=== PATIENT | male | born 1945 | race Caucasian/White ===

== ENCOUNTER 2019-09-02 14:40 | Emergency (ER) | payer MEDICARE, OTHER ==
[2019-09-02] MEDS ORDERED: ACETAMINOPHEN TAB 500 MG TAB PO STA (15:19)
[2019-09-02] MEDS ORDERED: IBUPROFEN 600 MG TAB PO STA (15:20)
[2019-09-02 15:43] LABS: Appearance,Urine Clear (Clear); Bilirubin,Urine Negative (Negative); Blood,Urine Trace (Negative); Color,Urine Yellow; Glucose,Urine (UA) Negative (Negative); Ketones,Urine Negative (Negative); Leukocyte Esterase,Urine Negative (Negative); Mucus,Urine Rare /hpf; Nitrite,Urine Negative (Negative); PH, Urine 5.5 (5.0-8.0); Protein,Urine Negative (Negative); RBC,Urine 2 /hpf (0-5); Specific Gravity,Urine 1.019 (1.001-1.035); Urobilinogen,Urine <2.0 mg/dL (<2.0); WBC,Urine 2 /hpf (0-5)
--- NOTE | 2019-09-02 15:47 | ED ---
General Adult HPI - General Chief complaint: Fever Stated complaint: Fever Time Seen by Provider: 09/02/19 15:45 Source: patient, RN notes reviewed, old records reviewed Mode of arrival: wheelchair Limitations: no limitations - History of Present Illness Initial comments: This is a 72-year-old male who presents emergency department stating that he has had a fever for about an hour and half. Patient denies any cough. Patient denies any difficulty breathing first breath per patient denies chest pain or palpitations. Patient denies any abdominal pain patient denies nausea vomiting diarrhea. Patient denies any dysuria hematuria urinary frequency. Patient states she has noticed occasionally his urine. Her. Patient denies any headache patient denies numbness weakness. Patient denies any lightheadedness or dizziness. Patient denies any rashes lesions or areas of erythema. Patient denies any neck stiffness. - Related Data Allergies Allergy/AdvReac Type Severity Reaction Status Date / Time No Known Allergies Allergy Verified 09/02/19 14:47 Review of Systems ROS Statement: Those systems with pertinent positive or pertinent negative responses have been documented in the HPI. ROS Other: All systems not noted in ROS Statement are negative. Past Medical History Past Medical History: Atrial Fibrillation, COPD, Hypertension History of Any Multi-Drug Resistant Organisms: None Reported Past Surgical History: Joint Replacement, Orthopedic Surgery Additional Past Surgical History / Comment(s): right shoulder, right knee replacement, left ankle replaced, Past Psychological History: No Psychological Hx Reported Smoking Status: Former smoker Past Alcohol Use History: None Reported Past Drug Use History: None Reported General Exam - General Exam Comments Initial Comments: GENERAL: Patient is well-developed and well-nourished. Patient is nontoxic and well- hydrated and is in no acute distress ENT: Neck is soft and supple. No significant lymphadenopathy is noted. Oropharynx is clear. Moist mucous membranes. Neck has full range of motion without eliciting any pain. EYES: The sclera were anicteric and conjunctiva were pink and moist. Extraocular movements were intact and pupils were equal round and reactive to light. Eyelids were unremarkable. PULMONARY: Unlabored respirations. Good breath sounds bilaterally. No audible rales rhonchi or wheezing was noted. CARDIOVASCULAR: There is a regular rate and rhythm without any murmurs gallops or rubs. ABDOMEN: Soft and nontender with normal bowel sounds. SKIN: Skin is clear with no lesions or rashes and otherwise unremarkable. NEUROLOGIC: Patient is alert and oriented x3. Cranial nerves II through XII are grossly intact. Motor and sensory are also intact. Normal speech, volume and content. Symmetrical smile. MUSCULOSKELETAL: Normal extremities with adequate strength and full range of motion. LYMPHATICS: No significant lymphadenopathy is noted PSYCHIATRIC: Normal psychiatric evaluation. Limitations: no limitations Course Vital Signs 09/02/19 14:41 Temperature 102.7 F H Pulse Rate 101 H Respiratory 16 Rate Blood Pressure 148/76 O2 Sat by Pulse 97 Oximetry Medical Decision Making - Lab Data Lab Results 09/02/19 Range/Units 15:20 Urine Color Yellow Urine Appearance Clear (Clear) Urine pH 5.5 (5.0-8.0) Ur Specific [place] 1.019 (1.001-1.035) Urine Protein Negative (Negative) Urine Glucose (UA) Negative (Negative) Urine Ketones Negative (Negative) Urine Blood Trace H (Negative) Urine Nitrite Negative (Negative) Urine Bilirubin Negative (Negative) Urine Urobilinogen <2.0 (<2.0) mg/dL Ur Leukocyte Esterase Negative (Negative) Urine RBC 2 (0-5) /hpf Urine WBC 2 (0-5) /hpf Urine Mucus Rare H (None) /hpf Disposition Clinical Impression: Viral illness Disposition: HOME SELF-CARE Condition: Good Instructions (If sedation given, give patient instructions): Fever in Adults (ED), Viral Syndrome (ED) Is patient prescribed a controlled substance at d/c from ED?: No Referrals: Red Dean MD [Primary Care Provider] - 1-2 days Time of Disposition: 15:46
[2019-09-02 15:57] VITALS: BP 143/68; PULSE 106; RESP 18; TEMP 103.2
== END 2019-09-02 15:59 | disposition home or self-care (01) ==
LOC: EC 14:40
DX: B34.9 Viral infection, unspecified (principal); Z20.828 Contact with and (suspected) exposure to other viral communicable diseases; Z87.891 Personal history of nicotine dependence; Z96.651 Presence of right artificial knee joint
CPT/HCPCS: 81001; 99284; U0003

== ENCOUNTER 2022-11-25 05:40 | Day surgery (SDC) | payer MEDICARE, OTHER ==
[2022-11-25] MEDS: SODIUM CHLORIDE 0.9% 1,000 ML IV SCH ×2 (06:25→22:47)
[2022-11-25] MEDS ORDERED: HYDROmorphone 0.5 MG/0.5 ML SYRINGE IVP PRN (07:00)
[2022-11-25] MEDS ORDERED: MIDAZOLAM 2 MG/2 ML VIAL IV PRN (07:00)
[2022-11-25] MEDS ORDERED: ePHEDrine 50 MG/ML 1 ML VIAL ONE (07:33)
[2022-11-25] MEDS ORDERED: HEPARIN SODIUM,PORCINE 10,000 UNIT/ML 1 ML VIAL ONE (07:33)
[2022-11-25] MEDS ORDERED: ATROPINE SULFATE 0.4 MG/ML 1 ML VIAL ONE (07:33)
[2022-11-25] MEDS ORDERED: SUCCINYLCHOLINE CHLORIDE 200 MG/10 ML VIAL IV ONE (07:33)
[2022-11-25] MEDS ORDERED: fentaNYL (PF) 50 MCG/ML 2 ML AMP ONE (07:33)
[2022-11-25] MEDS ORDERED: PHENYLEPHRINE-0.9% NACL SYG 1,000 MCG/10 ML SYRINGE ONE (07:33)
[2022-11-25] MEDS ORDERED: LIDOCAINE 2% INJ 20 MG/ML (2 ML VIAL) ONE (07:33)
[2022-11-25] MEDS ORDERED: PROPOFOL 10 MG/ML 20 ML VIAL IV ONE (07:33)
[2022-11-25] MEDS ORDERED: HEPARIN SOD,PORK IN 0.45% NACL 25,000 UNIT in 0.45% NACL 1 250ML.BAG IV ONE (07:51)
[2022-11-25] MEDS ORDERED: LIDOCAINE 1% INJ 10MG/ML (30 ML VIAL-PF) SQ ONE (08:15)
[2022-11-25] MEDS ORDERED: IOPAMIDOL-370 100ML BTL INJ ONE (11:20)
[2022-11-25] MEDS: LACTATED RINGERS 1,000 ML IV SCH ×3 (11:44→22:47)
[2022-11-25] MEDS ORDERED: ACETAMINOPHEN IV (For NPO) 1,000 MG in EMPTY BAG 1 BAG IVPB ONE (11:45)
[2022-11-25] MEDS ORDERED: ACETAMINOPHEN TAB 325 MG TAB PO PRN (11:45)
--- NOTE | 2022-11-25 11:50 | P.HPCAR ---
History of Present Illness This is Dr. Juares dictating an H/P on this patient The patient was interviewed and examined IMPRESSION / ASSESSMENT: Paroxysmal atrial fibrillation with increasing frequency and breakthrough episodes despite flecainide Associated palpitations and shortness of breath Sick sinus syndrome Statin intolerance Hypertension PLAN: Proceed with A. fib ablation HPI Patient denies any fever chills cough expectoration Denies any syncope or palpitations in the last few weeks No undue shortness of breath Orthopnea PND He's been experiencing increasing episodes of atrial fibrillation that are not responding to flecainide He has underlying sick sinus syndrome which limits the use of drugs for A. fib ROS: No fever chills or rigors, no cough, phlegm or expectoration, no nausea, vomiting or diarrhea, no hematuria, dysuria, no musculoskeletal complaints, no strokes or seizures, no skin lesions. EXAMINATION: Temperature 90.8 degrees, pulse rate 56 Blood pressure 147/72 Heart sounds S1 and S2 are normal Breath sounds are clear no rhonchi no crackles Abdomen soft extremities are warm No lower extremity edema No JVD REVIEW OF LABS, ECG & MEDICAL DATA on xarelto, flecainide low-dose, very low- dose beta blockers, amlodipine Physical Exam Vitals: Vital Signs Temp Pulse Resp BP Pulse Ox 11/25/22 06:33 98.0 F 56 L 16 147/72 97 Intake and Output 11/24/22 11/25/22 11/25/22 22:59 06:59 14:59 Intake Total 50 940 Balance 50 940 Intake: IV 50 940 Other: Weight 94.1 kg Past Medical History Past Medical History: Atrial Fibrillation, COPD, CVA/TIA, Hypertension, Thyroid Disorder Additional Past Medical History / Comment(s): tia no residual, see Dr Juares's H & P pt reports tinnitis lft ear History of Any Multi-Drug Resistant Organisms: None Reported Past Surgical History: Joint Replacement, Orthopedic Surgery Additional Past Surgical History / Comment(s): right shoulder, right knee replacement, left ankle replaced, yamileth to left leg placed and then removed at a later time. Past Anesthesia/Blood Transfusion Reactions: No Reported Reaction Smoking Status: Former smoker Physical Examination Vital Signs Temp Pulse Resp BP Pulse Ox 11/25/22 06:33 98.0 F 56 L 16 147/72 97 Intake and Output 11/24/22 11/25/22 11/25/22 22:59 06:59 14:59 Intake Total 50 940 Balance 50 940 Intake: IV 50 940 Other: Weight 94.1 kg Results Current Medications Generic Name Dose Route Start Last Admin Trade Name Freq PRN Reason Stop Dose Admin Acetaminophen 650 mg 11/25/22 11:45 Acetaminophen Tab 325 Mg Tab PO Q6HR PRN Mild Pain (Scale 1 to 3) Amlodipine Besylate 10 mg 11/26/22 09:00 Amlodipine 10 Mg Tab PO DAILY [facility] Aspirin 81 mg 11/26/22 09:00 Aspirin 81 Mg PO DAILY [facility] Famotidine 20 mg 11/25/22 21:00 Famotidine 20 Mg Tab PO BID [facility] Flecainide Acetate 50 mg 11/25/22 21:00 Flecainide 50 Mg Tab PO Q12HR [facility] Hydromorphone HCl 0.5 mg 11/25/22 07:00 Hydromorphone 0.5 Mg/0.5 Ml Syringe IVP 11/25/22 23:00 Q5M PRN Phase 1 or 2 - Pain Control Sodium Chloride 1,000 mls @ 20 mls/hr 11/25/22 06:03 11/25/22 06:25 Saline 0.9% IV 12/25/22 06:04 950 mls .Q24H [facility] Administration Lactated Ringer's 1,000 mls @ 20 mls/hr 11/25/22 06:03 11/25/22 11:44 Lactated Ringers IV 12/25/22 06:04 0 mls .Q24H [facility] Administration Acetaminophen 1,000 mg/ IV 100 mls @ 400 mls/hr 11/25/22 11:45 Solution IVPB 11/25/22 11:59 ONCE ONE Levothyroxine Sodium 200 mcg 11/26/22 06:30 Levothyroxine 100 Mcg Tab PO DAILY@0630 [facility] Losartan Potassium 50 mg 11/26/22 09:00 Losartan 50 Mg Tab PO DAILY [facility] Metoprolol Tartrate 25 mg 11/25/22 11:45 Metoprolol Tartrate 25 Mg Tab PO Q48H [facility] Midazolam HCl 2 mg 11/25/22 07:00 Midazolam 2 Mg/2 Ml Vial IV 11/25/22 23:00 ONCE PRN Pre-Op Anxiety Pravastatin Sodium 20 mg 11/25/22 21:00 Pravastatin Sodium 20 Mg Tab PO HS [facility] Rivaroxaban 20 mg 11/25/22 18:00 Rivaroxaban 20 Mg Tab PO HS [facility] Protocol Sodium Chloride 12 ml 11/25/22 11:45 Sodium Chloride 0.9% Flush 10 Ml Syringe IV Q12HR PRN Line Flush Tamsulosin HCl 0.4 mg 11/26/22 09:00 Tamsulosin 0.4 Mg Cap.Er.24h PO DAILY [facility] Intake and Output 11/24/22 11/25/22 11/25/22 22:59 06:59 14:59 Intake Total 50 940 Balance 50 940 Intake: IV 50 940 Other: Weight 94.1 kg Patient Weight 11/26/22 06:59 Weight 94.1 kg
--- NOTE | 2022-11-25 11:56 | P.EPPROC ---
- EP Procedure Note Electrophysiology Procedure Note: PROCEDURE A. fib ablation with PVI, left atrial roof ablation DIAGNOSIS Paroxysmal Atrial fibrillation, symptomatic, refractory to therapy RESULT No left atrial appendage mass seen on intracardiac echo, normal LV function Evidence of thickened pericardium and small effusion at the base of the LV and behind the left atrium Successful A. fib ablation/pulmonary vein isolation of all veins using cryo- ablation, wide [place] ablation Complete entrance block in all 4 veins confirmed No evidence for phrenic nerve injury Left atrial roof ablation, successful Ablation of the left atrial septum, atrial tissue between right superior and right inferior pulmonary veins Esophageal deflection YES / NO PROCEDURE DETAILS Written informed consent prior to procedure. Patient brought to the EP lab. General anesthesia given. Heparin administered. A city maintained above 300 seconds Both groins prepped and draped per protocol and venous sheaths placed. Esophagus intubated, circa catheter for temperature monitoring an endoscope for possible esophageal deflection. Phrenic nerve monitoring performed. Esophageal temperature monitoring performed. Esophageal deflection performed if circa catheter overlapping with the balloon or circa temperature less than 27.5C Intracardiac echocardiography performed. Pericardium evaluated. Left atrial appendage evaluated. Left atrium evaluated along with pulmonary veins Transseptal catheterization performed under fluoroscopic guidance and intraca ia echo guidance Cryoablation sheath exchanged, balloon catheter along with achieve catheter placed in the left atrium. Pulmonary veins isolated in the following sequence: Left superior pulmonary vein followed by left inferior pulmonary vein, followed by right inferior pulmonary vein and lastly right superior pulmonary vein. Phrenic nerve stimulation along with capture thresholds within the SVC and right superior pulmonary vein to identify the phrenic nerve proximity to the cryo- balloon. Pulmonary veins isolated and confirmed with entrance and exit block. Phrenic nerve integrity confirmed at the end of the procedure Ablation of the left atrial roof performed with sequential lesions from the left superior to the right superior pulmonary veins. Ablation of the electrograms confirmed Ablation of the left atrial septum performed with cannulation of the superior branch of the right inferior or the inferior branch of the right superior vein to achieve ablation of the posterior septum of the left atrium. Ablation of electrograms confirmed Diagnostic catheters for the high right atrium, His bundle, coronary sinus placed. LA and RA pressures recorded RA pressure: 13/9/10 LA pressure: 18/6/12 Diagnostic EP study with coronary sinus pacing and recording Baseline measurements: Sinus cycle length 900 ms, VT interval 138 ms, QRS 99 ms and QT 365 ms AH interval 61 and HV interval 43 ms Sinus node recovery times were 1078, 1068 and 1072 ms. AV node Wenckebach block 330 ms Left bundle branch block aberrancy with rapid atrial pacing During the procedure the patient went to junctional rhythm intermittently and IV atropine was infused and atrial pacing performed Intact AV node Venous sheaths were removed and hemostasis assured with a closure device. Patient extubated and transferred to recovery PROCEDURES PERFORMED Diagnostic EP study CS pacing and recording Left and right transseptal catheterization Catheter the mapping of the tachycardia Intracardiac echocardiography Pulmonary vein isolation with transseptal and comprehensive EPS, [id number] Drug infusion, +[id number] Left atrial roof line, +[id number] Linear ablation, left atrium septum, +[id number]
[2022-11-25] MEDS ORDERED: RIVAROXABAN 20 MG TAB PO SCH (18:00)
[2022-11-25] MEDS: FLECAINIDE 50 MG TAB PO SCH (20:13)
[2022-11-25] MEDS: FAMOTIDINE 20 MG TAB PO SCH (20:13)
[2022-11-25] MEDS ORDERED: PRAVASTATIN SODIUM 20 MG TAB PO SCH (21:00)
[2022-11-26] MEDS ORDERED: LEVOTHYROXINE 100 MCG TAB PO SCH (06:30)
[2022-11-26 08:47] VITALS: BP 153/76; PULSE 87; RESP 16; TEMP 98.2
[2022-11-26] MEDS ORDERED: LOSARTAN 50 MG TAB PO SCH (09:00)
[2022-11-26] MEDS ORDERED: ASPIRIN 81 MG PO SCH (09:00)
[2022-11-26] MEDS ORDERED: METOPROLOL TARTRATE 25 MG TAB PO SCH (09:00)
[2022-11-26] MEDS ORDERED: amLODIPine 10 MG TAB PO SCH (09:00)
[2022-11-26] MEDS ORDERED: TAMSULOSIN 0.4 MG CAP.ER.24H PO SCH (09:00)
[2022-11-26] MEDS: FAMOTIDINE 20 MG TAB PO SCH (09:12)
[2022-11-26] MEDS: FLECAINIDE 50 MG TAB PO SCH (09:13)
[2022-11-26] MEDS ORDERED: COLCHICINE 0.6 MG EACH PO SCH (09:45)
== END 2022-11-26 16:42 | disposition home or self-care (01) ==
LOC: CATHEP 05:40 → 6NMEDSUR 11:39 → CATHEP 11-26 16:42
PROVIDERS: ATTEND Internal Medicine Clinical Cardiac Electrophysiology
DX: I48.0 Paroxysmal atrial fibrillation (principal); I49.5 Sick sinus syndrome; I10 Essential (primary) hypertension; J44.9 Chronic obstructive pulmonary disease, unspecified; I48.91 Unspecified atrial fibrillation; E07.9 Disorder of thyroid, unspecified; Z98.890 Other specified postprocedural states; Z87.891 Personal history of nicotine dependence; Z79.899 Other long term (current) drug therapy
CPT/HCPCS: 93623; 93656; 93657; 86900; 86901; 86850; C1894 ×2; C1769 ×3; C1760; C1893; C1733; C1766; C1730; J2001; Q9967; J1644

== ENCOUNTER 2024-04-14 18:50 | Inpatient (IN) | payer MEDICARE ==
--- NOTE | 2024-04-14 19:04 | ED ---
Arrhythmia/Palpitations HPI - General Chief Complaint: Arrhythmia/Palpitations Stated Complaint: varied heart rate, facial numbness Time Seen by Provider: 04/14/24 19:03 Source: patient, RN notes reviewed, old records reviewed Mode of arrival: ambulatory Limitations: no limitations - History of Present Illness Initial Comments: This is a 78 male to the ER for evaluation today. Patient presents today for evaluation of uncontrolled heart rate going on 1 week. History of atrial fibrillation, on anticoagulation. Patient states the heart rate has been in the 130s for a week but today with chest pain chest pain to the jaw, patient is without chest pain occasional shortness of breath especially with exertion MD Complaint: rapid heart beat, "heart racing", palpitations, irregular heart beat, atrial fibrillation -: week(s) (1) Context: occurred during rest Arrhythmia History: atrial fibrillation Associated Symptoms: chest pain Treatments Prior to Arrival: beta-brian - Related Data Home Medications Medication Instructions Recorded Confirmed Aspirin [Adult Low Dose Aspirin EC] 81 mg PO DAILY 11/19/22 04/15/24 Famotidine [Pepcid] 20 mg PO BID 11/19/22 04/15/24 HYDROcodone/APAP 7.5-325MG [Humble 1 tab PO Q6H PRN 11/19/22 04/15/24 7.5-325] Losartan [Cozaar] 50 mg PO DAILY 11/19/22 04/15/24 Multivitamins, Thera [Multivitamin 1 tab PO DAILY 11/19/22 04/15/24 (formulary)] Nitroglycerin 0.4 mg SL Q5M PRN 11/19/22 04/15/24 Rivaroxaban [Xarelto] 20 mg PO HS 11/19/22 04/15/24 Tamsulosin [Flomax] 0.4 mg PO DAILY 11/19/22 04/15/24 Testosterone Cypionate 200 mg IM Q30D 11/19/22 04/15/24 [Depo-Testosterone] bisacodyL [Dulcolax] 10 mg PO HS 11/19/22 04/15/24 Albuterol Sulfate [Albuterol 1 puff PO RT-Q6H PRN 04/15/24 04/15/24 Sulfate Hfa] Biotin [Biotin Disolve] 10,000 mcg PO HS 01/19/25 01/19/25 Docusate [Colace] 400 mg PO HS 04/15/24 04/15/24 Metoprolol Succinate (ER) [Toprol 50 mg PO DAILY 04/15/24 04/15/24 XL] Pravastatin Sodium [Pravachol] 40 mg PO HS 04/15/24 04/15/24 Previous Rx's Medication Instructions Recorded Levothyroxine Sodium [Synthroid] 150 mcg PO DAILY@0630 30 Days #30 04/21/24 tab Spironolactone [Aldactone] 25 mg PO DAILY 30 Days #30 tab 04/21/24 Allergies Allergy/AdvReac Type Severity Reaction Status Date / Time No Known Allergies Allergy Verified 04/15/24 08:38 Review of Systems ROS Statement: Those systems with pertinent positive or pertinent negative responses have been documented in the HPI. ROS Other: All systems not noted in ROS Statement are negative. Past Medical History Past Medical History: Atrial Fibrillation, COPD, CVA/TIA, Hypertension, Thyroid Disorder Additional Past Medical History / Comment(s): tia no residual, see Dr Juares's H & P pt reports tinnitis lft ear History of Any Multi-Drug Resistant Organisms: None Reported Past Surgical History: Joint Replacement, Orthopedic Surgery Additional Past Surgical History / Comment(s): right shoulder, right knee replacement, left ankle replaced, yamileth to left leg placed and then removed at a later time. Past Anesthesia/Blood Transfusion Reactions: No Reported Reaction Past Psychological History: No Psychological Hx Reported Smoking Status: Former smoker Past Alcohol Use History: Rare Past Drug Use History: None Reported - Past Family History Mother Family Medical History: Coronary Artery Disease (CAD) Father Family Medical History: Cancer General Exam Limitations: no limitations General appearance: alert, in no apparent distress, anxious Head exam: Present: atraumatic, normocephalic, normal inspection Eye exam: Present: normal appearance, PERRL, EOMI. Absent: scleral icterus, conjunctival injection, periorbital swelling ENT exam: Present: normal exam, mucous membranes moist Neck exam: Present: normal inspection. Absent: tenderness, meningismus, lymphadenopathy Respiratory exam: Present: normal lung sounds bilaterally. Absent: respiratory distress, wheezes, rales, rhonchi, stridor Cardiovascular Exam: Present: tachycardia, irregular rhythm, normal heart sounds. Absent: systolic murmur, diastolic murmur, rubs, gallop, clicks GI/Abdominal exam: Present: soft, normal bowel sounds. Absent: distended, tenderness, guarding, rebound, rigid Extremities exam: Present: normal inspection, full ROM, normal capillary refill. Absent: tenderness, pedal edema, joint swelling, calf tenderness Back exam: Present: normal inspection Neurological exam: Present: alert, oriented X3, CN II-XII intact Psychiatric exam: Present: normal affect, normal mood Skin exam: Present: warm, dry, intact, normal color. Absent: rash Course Vital Signs 04/14/24 04/14/24 04/14/24 18:54 19:55 20:48 Temperature 98.8 F Pulse Rate 135 H 133 H 130 H Respiratory 18 18 16 Rate Blood Pressure 138/89 106/87 136/94 O2 Sat by Pulse 96 Oximetry 04/14/24 04/14/24 04/14/24 21:41 22:31 23:41 Temperature Pulse Rate 128 H 133 H 67 Respiratory 16 18 18 Rate Blood Pressure 138/99 91/72 102/64 O2 Sat by Pulse 96 Oximetry 04/15/24 04/15/24 04/15/24 00:02 01:35 02:57 Temperature Pulse Rate 52 L 50 L 50 L Respiratory 18 16 18 Rate Blood Pressure 98/53 O2 Sat by Pulse Oximetry 04/15/24 04/15/24 04/15/24 05:27 06:53 08:00 Temperature Pulse Rate 130 H 131 H 127 H Respiratory 18 18 20 Rate Blood Pressure 113/74 121/87 125/75 O2 Sat by Pulse 96 96 Oximetry 04/15/24 04/15/24 04/15/24 09:01 10:00 12:52 Temperature Pulse Rate 131 H 133 H 133 H Respiratory 20 20 20 Rate Blood Pressure 118/90 114/81 120/94 O2 Sat by Pulse 96 96 96 Oximetry 04/15/24 15:21 Temperature Pulse Rate 69 Respiratory 20 Rate Blood Pressure 122/74 O2 Sat by Pulse 97 Oximetry - Reevaluation(s) Reevaluation #1: 04/14/24 19:27 Records reviewed Reevaluation #2: 04/14/24 21:19 No improvement in heart rate and still with chest pain Reevaluation #3: 04/14/24 21:19 Patient informed of results and questions answered Reevaluation #4: Was pt. sent in by a medical professional or institution (JAREN Juarez, TOOL MACHINIST, urgent care, hospital, or detention...) When possible be specific @ -no Did you speak to anyone other than the patient for history (EMS, parent, family, police, friend...)? What history was obtained from this source @ -no Did you review nursing and triage notes (agree or disagree)? Why? @ -agree Are old charts reviewed (outside hosp., previous admission, EMS record, old EKG, old radiological studies, urgent care reports/EKG's, detention records)? Report findings @ -yes Differential Diagnosis (chest pain, altered mental status, abdominal pain women, abdominal pain men, vaginal bleeding, weakness, fever, dyspnea, syncope, hea dache, dizziness, GI bleed, back pain, seizure, CVA, palpatations, mental health, musculoskeletal)? @ -prior EKG interpreted by me (3pts min.). @ -yes X-rays interpreted by me (1pt min.). @ -yes negative for acute disease CT interpreted by me (1pt min.). @ -no U/S interpreted by me (1pt. min.). @ -no What testing was considered but not performed or refused? (CT, X-rays, U/S, labs)? Why? @ -none What meds were considered but not given or refused? Why? @ -none Did you discuss the management of the patient with other professionals (professionals i.e. JAREN Juarez, TOOL MACHINIST, lab, RT, psych nurse, recording studio set up worker, gas distribution and emergency clerk, teacher, public safety officer, piano case and bench assembler)? Give summary @ -no Was smoking cessation discussed for >3mins.? @ -no Was critical care preformed (if so, how long)? @ -yes31 Were there social determinants of health that impacted care today? How? (Homelessness, low income, unemployed, alcoholism, drug addiction, transportation, low edu. Level, literacy, decrease access to med. care, [facility], rehab)? @ -none Was there de-escalation of care discussed even if they declined (Discuss DNR or withdrawal of care, Hospice)? DNR status @ -no What co-morbidities impacted this encounter? (DM, HTN, Smoking, COPD, CAD, Cancer, CVA, ARF, Chemo, Hep., AIDS, mental health diagnosis, sleep apnea, morbid obesity)? @ -none Was patient admitted / discharged? Hospital course, mention meds given and route, prescriptions, significant lab abnormalities, going to OR and other pertinent info. @ - 78 male with uncontrolled atrial fibrillation chest pain will admit for rate control and cardiology evaluation Admitted Undiagnosed new problem with uncertain prognosis? @ -no Drug Therapy requiring intensive monitoring for toxicity (Heparin, Nitro, Insulin, Cardizem)? @ -no Were any procedures done? @ -no Diagnosis/symptom? @ -Atrial fibrillation with RVR uncontrolled Acute, or Chronic, or Acute on Chronic? @ -Acute Uncomplicated (without systemic symptoms) or Complicated (systemic symptoms)? @ -Complicated Side effects of treatment? @ -no Exacerbation, Progression, or Severe Exacerbation? @ -exacerbation Poses a threat to life or bodily function? How? (Chest pain, [place], [place], pneumonia, PE, COPD, DKA, ARF, appy, cholecystitis, CVA, Diverticulitis, Homicidal, Suicidal, threat to staff... and all critical care pts) @ -yes with arrhythmia Reevaluation #5: Differential Palpitations Ventricular arrhythmias, atrial arrhythmias, myocardial infarction, anemia, thyrotoxicosis, electrolyte imbalance, hypokalemia, pulmonary embolism, pulmonary disease, drugs, alcohol, anxiety, stress.... This is not meant to be an all-inclusive list. - Consultations Consultation #1: With [facility] who agrees to admit this patient EKG Findings - EKG Comments: EKG Findings:: She is A-fib a flutter 134 QRS 103 QTc 361 Medical Decision Making - Medical Decision Making 78 male with uncontrolled atrial fibrillation chest pain will admit for rate control and cardiology evaluation - Lab Data Result diagrams: 04/21/24 10:01 04/20/24 05:21 Lab Results 04/14/24 04/14/24 04/14/24 Range/Units 19:04 19:04 19:04 WBC 11.2 H (3.8-10.6) k/uL RBC 4.37 (4.30-5.90) m/uL Hgb 14.0 (13.0-17.5) gm/dL Hct 42.5 (39.0-53.0) % MCV 97.2 (80.0-100.0) fL MCH 32.1 (25.0-35.0) pg MCHC 33.0 (31.0-37.0) g/dL RDW 14.1 (11.5-15.5) % Plt Count 274 (150-450) k/uL MPV 7.3 Neutrophils % 65 % Lymphocytes % 22 % Monocytes % 10 % Eosinophils % 2 % Basophils % 0 % Neutrophils # 7.2 (1.3-7.7) k/uL Lymphocytes # 2.4 (1.0-4.8) k/uL Monocytes # 1.1 H (0-1.0) k/uL Eosinophils # 0.3 (0-0.7) k/uL Basophils # 0.0 (0-0.2) k/uL PT 11.3 (10.0-12.5) sec INR 1.0 (<1.2) APTT 24.7 (22.0-30.0) sec D-Dimer 0.25 (<0.60) mg/L FEU Sodium 137 (137-145) mmol/L Potassium 3.8 (3.5-5.1) mmol/L Chloride 101 (98-107) mmol/L Carbon Dioxide 31 H (22-30) mmol/L Anion Gap 5 mmol/L BUN 17 (9-20) mg/dL Creatinine 1.05 (0.66-1.25) mg/dL Est GFR (CKD-EPI)AfAm 79 (>60 ml/min/1.73 sqM) Est GFR (CKD-EPI)NonAf 68 (>60 ml/min/1.73 sqM) Glucose 95 (74-99) mg/dL Plasma Lactic Acid Luis Carlos (0.7-2.0) mmol/L Calcium 9.8 (8.4-10.2) mg/dL Phosphorus 4.0 (2.5-4.5) mg/dL Magnesium 2.1 (1.6-2.3) mg/dL Total Bilirubin 0.4 (0.2-1.3) mg/dL AST 22 (17-59) U/L ALT 22 (4-49) U/L Alkaline Phosphatase 63 (38-126) U/L Troponin I (0.000-0.034) ng/mL NT-Pro-B Natriuret Pep 2300 pg/mL Total Protein 6.3 (6.3-8.2) g/dL Albumin 3.9 (3.5-5.0) g/dL TSH <0.015 L (0.465-4.680) mIU/L 04/14/24 04/14/24 Range/Units 19:04 19:04 WBC (3.8-10.6) k/uL RBC (4.30-5.90) m/uL Hgb (13.0-17.5) gm/dL Hct (39.0-53.0) % MCV (80.0-100.0) fL MCH (25.0-35.0) pg MCHC (31.0-37.0) g/dL RDW (11.5-15.5) % Plt Count (150-450) k/uL MPV Neutrophils % % Lymphocytes % % Monocytes % % Eosinophils % % Basophils % % Neutrophils # (1.3-7.7) k/uL Lymphocytes # (1.0-4.8) k/uL Monocytes # (0-1.0) k/uL Eosinophils # (0-0.7) k/uL Basophils # (0-0.2) k/uL PT (10.0-12.5) sec INR (<1.2) APTT (22.0-30.0) sec D-Dimer (<0.60) mg/L FEU Sodium (137-145) mmol/L Potassium (3.5-5.1) mmol/L Chloride (98-107) mmol/L Carbon Dioxide (22-30) mmol/L Anion Gap mmol/L BUN (9-20) mg/dL Creatinine (0.66-1.25) mg/dL Est GFR (CKD-EPI)AfAm (>60 ml/min/1.73 sqM) Est GFR (CKD-EPI)NonAf (>60 ml/min/1.73 sqM) Glucose (74-99) mg/dL Plasma Lactic Acid Luis Carlos 1.0 (0.7-2.0) mmol/L Calcium (8.4-10.2) mg/dL Phosphorus (2.5-4.5) mg/dL Magnesium (1.6-2.3) mg/dL Total Bilirubin (0.2-1.3) mg/dL AST (17-59) U/L ALT (4-49) U/L Alkaline Phosphatase (38-126) U/L Troponin I <0.012 (0.000-0.034) ng/mL NT-Pro-B Natriuret Pep pg/mL Total Protein (6.3-8.2) g/dL Albumin (3.5-5.0) g/dL TSH (0.465-4.680) mIU/L Critical Care Time Critical Care Time: Yes Total Critical Care Time: 31 Disposition Clinical Impression: Atrial fibrillation, Atrial flutter, Tachycardia, Palpitations, Atrial fibrillation with rapid ventricular response Disposition: ADMITTED IP TO THIS HOSP Condition: Fair Is patient prescribed a controlled substance at d/c from ED?: No
[2024-04-14] MEDS: DILTIAZEM 125 MG in SODIUM CHLORIDE 0.9% 100 ML IV SCH (19:57)
[2024-04-14] MEDS: SODIUM CHLORIDE 0.9% 1,000 ML IV STA (19:57)
[2024-04-14] MEDS: DILTIAZEM DRIP BOLUS FROM BAG 1 MG SOLN IV ONE (20:06)
[2024-04-14 20:25] LABS: ALT 22 U/L (4-49); AST 22 U/L (17-59); African American GFR (CKD) 79 (>60 ml/min/1.73 sqM); Albumin 3.9 g/dL (3.5-5.0); Alkaline Phosphatase 63 U/L (38-126); Anion Gap 5 mmol/L; Basophils % (A) 0 %; Blood Urea Nitrogen 17 mg/dL (9-20); Calcium 9.8 mg/dL (8.4-10.2); Carbon Dioxide 31 mmol/L (22-30); Chloride 101 mmol/L (98-107); Eosinophils # (A) 0.3 k/uL (0-0.7); Eosinophils % (A) 2 %; Glucose 95 mg/dL (74-99); HCT 42.5 % (39.0-53.0); Lymphocytes # (A) 2.4 k/uL (1.0-4.8); Lymphocytes % (A) 22 %; MCH 32.1 pg (25.0-35.0); MCV 97.2 fL (80.0-100.0); Magnesium 2.1 mg/dL (1.6-2.3); Mean Platelet Volume 7.3; Monocytes # (A) 1.1 k/uL (0-1.0); Monocytes % (A) 10 %; Neutrophils # (A) 7.2 k/uL (1.3-7.7); Neutrophils % (A) 65 %; Non-African American GFR(CKD) 68 (>60 ml/min/1.73 sqM); Platelet Count 274 k/uL (150-450); Potassium 3.8 mmol/L (3.5-5.1); RBC 4.37 m/uL (4.30-5.90); RDW 14.1 % (11.5-15.5); Sodium 137 mmol/L (137-145); Total Bilirubin 0.4 mg/dL (0.2-1.3); Total Protein 6.3 g/dL (6.3-8.2); WBC 11.2 k/uL (3.8-10.6)
[2024-04-14 20:34] LABS: NT-Pro-B-Type Natriuretic Pept 2300 pg/mL
[2024-04-14 21:03] LABS: Partial Thromboplastin Time 24.7 sec (22.0-30.0); Prothrombin Time 11.3 sec (10.0-12.5)
[2024-04-14] MEDS ORDERED: MORPHINE SULFATE 4 MG/ML SYRINGE IV PRN (21:15)
[2024-04-14] MEDS ORDERED: NALOXONE 0.4 MG/ML 1 ML VIAL IV PRN (21:15)
[2024-04-14] MEDS ORDERED: ONDANSETRON 4 MG/2 ML VIAL IVP PRN (21:15)
[2024-04-14] MEDS: METOPROLOL TARTRATE 5 MG/5 ML VIAL IVP STA (21:32)
[2024-04-14] MEDS: DEXTROSE 5%-0.45% NACL 1,000 ML IV ONE (21:35)
[2024-04-14] MEDS: MAGNESIUM SULFATE-D5W PMX 1 GM in DEXTROSE/WATER 1 100ML.BAG IVPB ONE (21:38)
[2024-04-14] MEDS: SODIUM CHLORIDE 0.9% 1,000 ML IV SCH (21:41)
--- NOTE | 2024-04-14 23:11 | XR ---
EXAM: XR Chest, 2 Views CLINICAL HISTORY: XR Reason: Weakness TECHNIQUE: Frontal and lateral views of the chest. COMPARISON: No relevant prior studies available. FINDINGS: Lungs: Underinflated lungs with 7 cm elevation of the right diaphragm. There is a small amount of bibasilar atelectasis versus scarring. Pleural space: Unremarkable. No pneumothorax. Heart: Unremarkable. No cardiomegaly. Mediastinum: Unremarkable. Normal mediastinal contour. Bones/joints: Mild degenerative changes throughout the thoracic spine. No acute fracture. Tubes, lines and devices: There is a cardiac loop recorder projecting over the left side of the heart. The cardiac silhouette is mildly enlarged. Upper abdomen: Unremarkable as visualized. No pneumoperitoneum under the diaphragm. IMPRESSION: 1. There is a cardiac loop recorder projecting over the left side of the heart. The cardiac silhouette is mildly enlarged. 2. Underinflated lungs with 7 cm elevation of the right diaphragm. There is a small amount of bibasilar atelectasis versus scarring.
[2024-04-15 05:40] LABS: Basophils # (A) 0.1 k/uL (0-0.2); Basophils % (A) 0 %; Eosinophils # (A) 0.3 k/uL (0-0.7); Eosinophils % (A) 3 %; HGB 13.1 gm/dL (13.0-17.5); Lymphocytes # (A) 2.3 k/uL (1.0-4.8); Lymphocytes % (A) 22 %; MCH 32.6 pg (25.0-35.0); MCHC 32.9 g/dL (31.0-37.0); MCV 99.2 fL (80.0-100.0); Mean Platelet Volume 7.1; Monocytes # (A) 0.8 k/uL (0-1.0); Monocytes % (A) 7 %; Neutrophils # (A) 6.9 k/uL (1.3-7.7); Neutrophils % (A) 65 %; Platelet Count 273 k/uL (150-450); RBC 4.03 m/uL (4.30-5.90); RDW 14.2 % (11.5-15.5); WBC 10.6 k/uL (3.8-10.6)
[2024-04-15 05:52] LABS: ALT 20 U/L (4-49); AST 21 U/L (17-59); African American GFR (CKD) 75 (>60 ml/min/1.73 sqM); Albumin 3.7 g/dL (3.5-5.0); Alkaline Phosphatase 54 U/L (38-126); Anion Gap 7 mmol/L; Blood Urea Nitrogen 16 mg/dL (9-20); Calcium 9.2 mg/dL (8.4-10.2); Carbon Dioxide 27 mmol/L (22-30); Chloride 104 mmol/L (98-107); Glucose 93 mg/dL (74-99); Lipase 106 U/L (23-300); Magnesium 2.2 mg/dL (1.6-2.3); Non-African American GFR(CKD) 65 (>60 ml/min/1.73 sqM); Phosphorus 3.8 mg/dL (2.5-4.5); Potassium 3.8 mmol/L (3.5-5.1); Sodium 138 mmol/L (137-145); Total Bilirubin 0.4 mg/dL (0.2-1.3)
[2024-04-15] MEDS ORDERED: ALBUTEROL NEBULIZED 2.5 MG/3 ML INHALATION PRN (11:09)
--- NOTE | 2024-04-15 11:20 | P.HPIM ---
History of Present Illness This is a pleasant 78 years old male with past medical history of A-fib, on Xarelto at home, hypothyroidism on levothyroxine 200 mcg for 4 to 5 years as he explains and hypertension. Presents because of tachycardia more than a week. No overt chest pain but he describes some chest pressure in the lower chest with no specification associated with some funny feeling in the jaw that comes and go for more than a week. Denies coughing or dyspnea. No headache dizziness weakness or numbness although he feels little lightheaded No specific GI or symptom No smoking or alcohol or illicit drugs On admission he was tachycardic with heart rate around 133, Labs were unremarkable CBC, BMP, LFT, INR. Troponin x 3 is negative TSH is very low at 0.015 and less and normal T4 at 1.1 D-dimer is -0.25 Chest x-ray showing loop recorder with no acute changes but there is right hemidiaphragm is elevated 7 cm per radiologist EKG showing a flutter with heart rate of 134 Review of Systems Review of systems CONSTITUTIONAL: No fever, no malaise, no fatigue. HEENT: No recent visual problems or hearing problems. Denied any sore throat. CARDIOVASCULAR: No orthopnea, PND, no palpitations, no syncope. PULMONARY: No shortness of breath, no cough, no hemoptysis. GASTROINTESTINAL: No diarrhea, no nausea, no vomiting, no abdominal pain. Normoactive bowel sounds. NEUROLOGICAL: No headaches, no weakness, no numbness. HEMATOLOGICAL: Denies any bleeding or petechiae. GENITOURINARY: Denies any burning micturition, frequency, or urgency. MUSCULOSKELETAL/RHEUMATOLOGICAL: Denies any joint pain, swelling, or any muscle pain. ENDOCRINE: Denies any polyuria or polydipsia. Past Medical History Past Medical History: Atrial Fibrillation, COPD, CVA/TIA, Hypertension, Thyroid Disorder Additional Past Medical History / Comment(s): tia no residual, see Dr Juares's H & P pt reports tinnitis lft ear History of Any Multi-Drug Resistant Organisms: None Reported Past Surgical History: Joint Replacement, Orthopedic Surgery Additional Past Surgical History / Comment(s): right shoulder, right knee replacement, left ankle replaced, yamileth to left leg placed and then removed at a later time. Past Anesthesia/Blood Transfusion Reactions: No Reported Reaction Past Psychological History: No Psychological Hx Reported Smoking Status: Former smoker Past Alcohol Use History: Rare Past Drug Use History: None Reported Medications and Allergies Home Medications Medication Instructions Recorded Confirmed Type Aspirin [Adult Low Dose Aspirin EC] 81 mg PO DAILY 11/19/22 04/15/24 History Famotidine [Pepcid] 20 mg PO BID 11/19/22 04/15/24 History HYDROcodone/APAP 7.5-325MG [Mason 1 tab PO Q6H PRN 11/19/22 04/15/24 History 7.5-325] Levothyroxine Sodium 200 mcg PO DAILY 11/19/22 04/15/24 History Losartan [Cozaar] 50 mg PO DAILY 11/19/22 04/15/24 History Multivitamins, Thera [Multivitamin 1 tab PO DAILY 11/19/22 04/15/24 History (formulary)] Nitroglycerin 0.4 mg SL Q5M PRN 11/19/22 04/15/24 History Rivaroxaban [Xarelto] 20 mg PO HS 11/19/22 04/15/24 History Tamsulosin [Flomax] 0.4 mg PO DAILY 11/19/22 04/15/24 History Testosterone Cypionate 200 mg IM Q30D 11/19/22 04/15/24 History [Depo-Testosterone] amLODIPine 10 mg PO DAILY 11/19/22 04/15/24 History bisacodyL [Dulcolax] 10 mg PO HS 11/19/22 04/15/24 History Albuterol Sulfate [Albuterol 1 puff PO RT-Q6H PRN 04/15/24 04/15/24 History Sulfate Hfa] Biotin [Biotin Disolve] 10,000 mcg PO HS 04/15/24 04/15/24 History Docusate [Colace] 400 mg PO HS 04/15/24 04/15/24 History Metoprolol Succinate (ER) [Toprol 50 mg PO DAILY 04/15/24 04/15/24 History Xl] Pravastatin Sodium [Pravachol] 40 mg PO HS 04/15/24 04/15/24 History Allergies Allergy/AdvReac Type Severity Reaction Status Date / Time No Known Allergies Allergy Verified 04/15/24 08:38 Physical Exam Vitals: Vital Signs Temp Pulse Resp BP Pulse Ox 04/15/24 10:00 133 H 20 114/81 96 04/15/24 09:01 131 H 20 118/90 96 04/15/24 08:00 127 H 20 125/75 96 04/15/24 06:53 131 H 18 121/87 96 04/15/24 05:27 130 H 18 113/74 04/15/24 02:57 50 L 18 04/15/24 01:35 50 L 16 98/53 04/15/24 00:02 52 L 18 04/14/24 23:41 67 18 102/64 04/14/24 22:31 133 H 18 91/72 96 04/14/24 21:41 128 H 16 138/99 04/14/24 20:48 130 H 16 136/94 04/14/24 19:55 133 H 18 106/87 04/14/24 18:54 98.8 F 135 H 18 138/89 96 Intake and Output 04/14/24 04/15/24 04/15/24 22:59 06:59 14:59 Intake Total 47.417 Balance 47.417 Intake: Intake, IV Titration 47.417 Amount Diltiazem 125 mg In 47.417 Sodium Chloride 0.9% 100 ml @ 5 MG/HR 5 mls/hr IV .Q24H [facility] Rx#:[id number] Other: Weight 90.718 kg GENERAL: The patient is alert and oriented x3, not in any acute distress. Well developed, well nourished. HEENT: Pupils are round and equally reacting to light. EOMI. No scleral icterus. No conjunctival pallor. Normocephalic, atraumatic. No pharyngeal erythema. No thyromegaly. CARDIOVASCULAR: S1 and S2 present. No murmurs, rubs, or gallops. PULMONARY: Chest is clear to auscultation, no wheezing , no crackles. ABDOMEN: Soft, nontender, nondistended, normoactive bowel sounds. No palpable organomegaly. MUSCULOSKELETAL: No joint swelling or deformity. EXTREMITIES: No cyanosis, clubbing, or pedal edema. NEUROLOGICAL: Gross neurological examination did not reveal any focal deficits. SKIN: No rashes. no petechiae. Results CBC & Chem 7: 04/15/24 05:22 04/15/24 05:22 Labs: Abnormal Lab Results - Last 24 Hours (Table) 01/04/14/24 04/15/24 Range/Units 19:04 19:04 05:22 WBC 11.2 H (3.8-10.6) k/uL RBC 4.03 L (4.30-5.90) m/uL Monocytes # 1.1 H (0-1.0) k/uL Carbon Dioxide 31 H (22-30) mmol/L Total Protein (6.3-8.2) g/dL TSH <0.015 L (0.465-4.680) mIU/L 04/15/24 Range/Units 05:22 WBC (3.8-10.6) k/uL RBC (4.30-5.90) m/uL Monocytes # (0-1.0) k/uL Carbon Dioxide (22-30) mmol/L Total Protein 6.0 L (6.3-8.2) g/dL TSH (0.465-4.680) mIU/L Assessment and Plan Assessment: A flutter/fib with RVR, present on admission Iatrogenic hyperthyroidism. Patient is hypothyroidism on high dose of levothyroxine. We lowered the dose from 200 down to 150 mcg Hypertension Plan: Continue with Cardizem drip Continue with gentle hydration normal saline Continue with Xarelto and aspirin Hold losartan and Norvasc for blood pressure is borderline Lower dose of levothyroxine to 150 mcg daily, patient informed with recommendation to check thyroid function test in 2 to 3 months with his PCP and he agrees Labs and medication were reviewed.. Continue same treatment. Continue with symptomatic treatment. Resume home medication. Monitor labs and vitals. DVT and GI prophylaxis. Further recommendations as per clinical course of the patient DVT prophylaxis: Subcuta Xarelto GI Prophylaxis: Pepcid PT/OT: Pending Prognosis is guarded
--- NOTE | 2024-04-15 12:39 | P.CRDCN ---
History of Present Illness Consult date: 04/15/24 History of present illness: HISTORY OF PRESENTING ILLNESS: 78-year-old male who is known to Dr. Juares. He underwent atrial fibrillation ablation in 2022. This time he presented to the hospital because of symptoms of palpitations, funny sensation in the jaw for more than a week. Previously it was more on and off but lately it has been more persistent which required him to come to the hospital. He denies any chest pressure symptoms. He does not appear volume overloaded. He was noticed to have significantly low TSH and he was taking levothyroxine 200 mcg. Admission Labs: Hb 12, BUN 17, creatinine 1.05 troponins were negative x 2, TSH was less than 0.015. Free T4 was 1.11. NT-proBNP 2300 Admission EKG: Atrial flutter with heart rate 134 bpm, nonspecific ST changes. REVIEW OF SYSTEMS: 14 point review of system is negative except what is mentioned above in HPI. PHYSICAL EXAMINATION: Neck: Brisk carotid upstroke, no jugular venous distention. Lungs: Clear to auscultation. Heart: Regular rate and rhythm, S1-S2, , no murmur or rub. Abdomen: Soft nontender, positive bowel sounds. Extremities: No edema, intact distal pulses. Neuro: Alert, oritented, no focal deficits. Detailed neuro exam was not performed. ASSESSMENT: # Atrial flutter with RVR with symptoms of palpitation # Iatrogenic hyperthyroidism # Prior history of atrial fibrillation status post ablation in 2022 PLAN: Continue Xarelto 20 mg daily. Increase metoprolol succinate from 50 mg daily to twice daily. Give 1 dose of IV Lasix 40 mg. Reduce levothyroxine. Continue to monitor telemetry. Monitor electrolytes If patient does not appear to achieve rate/rhythm control with medications in next 24 hours, consider cardioversion. Adolfo Iverson MD, FACC, RPVI Thank you for allowing [facility] to participate in this patient's care. Feel free to reach out in case of any followup questions. Past Medical History Past Medical History: Atrial Fibrillation, COPD, CVA/TIA, Hypertension, Thyroid Disorder Additional Past Medical History / Comment(s): tia no residual, see Dr Juares's H & P pt reports tinnitis lft ear History of Any Multi-Drug Resistant Organisms: None Reported Past Surgical History: Joint Replacement, Orthopedic Surgery Additional Past Surgical History / Comment(s): right shoulder, right knee r eplacement, left ankle replaced, yamileth to left leg placed and then removed at a later time. Past Anesthesia/Blood Transfusion Reactions: No Reported Reaction Past Psychological History: No Psychological Hx Reported Smoking Status: Former smoker Past Alcohol Use History: Rare Past Drug Use History: None Reported Medications and Allergies Home Medications Medication Instructions Recorded Confirmed Type Aspirin [Adult Low Dose Aspirin EC] 81 mg PO DAILY 11/19/22 04/15/24 History Famotidine [Pepcid] 20 mg PO BID 11/19/22 04/15/24 History HYDROcodone/APAP 7.5-325MG [[place] 1 tab PO Q6H PRN 11/19/22 04/15/24 History 7.5-325] Levothyroxine Sodium 200 mcg PO DAILY 11/19/22 04/15/24 History Losartan [Cozaar] 50 mg PO DAILY 11/19/22 04/15/24 History Multivitamins, Thera [Multivitamin 1 tab PO DAILY 11/19/22 04/15/24 History (formulary)] Nitroglycerin 0.4 mg SL Q5M PRN 11/19/22 04/15/24 History Rivaroxaban [Xarelto] 20 mg PO HS 11/19/22 04/15/24 History Tamsulosin [Flomax] 0.4 mg PO DAILY 11/19/22 04/15/24 History Testosterone Cypionate 200 mg IM Q30D 11/19/22 04/15/24 History [Depo-Testosterone] amLODIPine 10 mg PO DAILY 11/19/22 04/15/24 History bisacodyL [Dulcolax] 10 mg PO HS 11/19/22 04/15/24 History Albuterol Sulfate [Albuterol 1 puff PO RT-Q6H PRN 04/15/24 04/15/24 History Sulfate Hfa] Biotin [Biotin Disolve] 10,000 mcg PO HS 04/15/24 04/15/24 History Docusate [Colace] 400 mg PO HS 04/15/24 04/15/24 History Metoprolol Succinate (ER) [Toprol 50 mg PO DAILY 04/15/24 04/15/24 History Xl] Pravastatin Sodium [Pravachol] 40 mg PO HS 04/15/24 04/15/24 History Allergies Allergy/AdvReac Type Severity Reaction Status Date / Time No Known Allergies Allergy Verified 04/15/24 08:38 Physical Exam Vitals: Vital Signs Temp Pulse Resp BP Pulse Ox 04/15/24 10:00 133 H 20 114/81 96 04/15/24 09:01 131 H 20 118/90 96 04/15/24 08:00 127 H 20 125/75 96 04/15/24 06:53 131 H 18 121/87 96 04/15/24 05:27 130 H 18 113/74 04/15/24 02:57 50 L 18 04/15/24 01:35 50 L 16 98/53 04/15/24 00:02 52 L 18 04/14/24 23:41 67 18 102/64 04/14/24 22:31 133 H 18 91/72 96 04/14/24 21:41 128 H 16 138/99 04/14/24 20:48 130 H 16 136/94 04/14/24 19:55 133 H 18 106/87 04/14/24 18:54 98.8 F 135 H 18 138/89 96 Intake and Output 04/14/24 04/15/24 04/15/24 22:59 06:59 14:59 Intake Total 47.417 Balance 47.417 Intake: Intake, IV Titration 47.417 Amount Diltiazem 125 mg In 47.417 Sodium Chloride 0.9% 100 ml @ 5 MG/HR 5 mls/hr IV .Q24H [facility] Rx#:[id number] Other: Weight 90.718 kg Results 04/15/24 05:22 04/15/24 05:22 Cardiac Enzymes 04/14/24 04/14/24 04/15/24 Range/Units 19:04 19:04 00:05 AST 22 (17-59) U/L Troponin I <0.012 <0.012 (0.000-0.034) ng/mL 04/15/24 04/15/24 Range/Units 05:22 05:22 AST 21 (17-59) U/L Troponin I <0.012 (0.000-0.034) ng/mL Coagulation 04/14/24 Range/Units 19:04 PT 11.3 (10.0-12.5) sec APTT 24.7 (22.0-30.0) sec CBC 04/14/24 04/15/24 Range/Units 19:04 05:22 WBC 11.2 H 10.6 (3.8-10.6) k/uL RBC 4.37 4.03 L (4.30-5.90) m/uL Hgb 14.0 13.1 (13.0-17.5) gm/dL Hct 42.5 40.0 (39.0-53.0) % Plt Count 274 273 (150-450) k/uL Comprehensive Metabolic Panel 04/14/24 04/15/24 Range/Units 19:04 05:22 Sodium 137 138 (137-145) mmol/L Potassium 3.8 3.8 (3.5-5.1) mmol/L Chloride 101 104 (98-107) mmol/L Carbon Dioxide 31 H 27 (22-30) mmol/L BUN 17 16 (9-20) mg/dL Creatinine 1.05 1.09 (0.66-1.25) mg/dL Glucose 95 93 (74-99) mg/dL Calcium 9.8 9.2 (8.4-10.2) mg/dL AST 22 21 (17-59) U/L ALT 22 20 (4-49) U/L Alkaline Phosphatase 63 54 (38-126) U/L Total Protein 6.3 6.0 L (6.3-8.2) g/dL Albumin 3.9 3.7 (3.5-5.0) g/dL Current Medications Generic Name Dose Route Start Last Admin Trade Name Freq PRN Reason Stop Dose Admin Hydrocodone Bitart/Acetaminophen 1 each 04/15/24 11:09 Hydrocodone/Apap 7.5-325mg 1 Each Tab PO Q6H PRN Pain Albuterol Sulfate 2.5 mg 04/15/24 11:09 Albuterol Nebulized 2.5 Mg/3 Ml INHALATION RT-Q6H PRN Shortness Of Breath Bisacodyl 10 mg 04/15/24 21:00 Bisacodyl 5 Mg Tablet. PO HS ELY Docusate Sodium 400 mg 04/15/24 21:00 Docusate 100 Mg Cap PO HS ELY Famotidine 20 mg 04/15/24 21:00 Famotidine 20 Mg Tab PO BID ELY Sodium Chloride 1,000 mls @ 75 mls/hr 04/14/24 21:15 04/15/24 10:06 Saline 0.9% IV Not Given .[id number] [facility] Levothyroxine Sodium 150 mcg 04/16/24 06:30 Levothyroxine 75 Mcg Tab PO DAILY@0630 [facility] Metoprolol Succinate 50 mg 04/15/24 21:00 Metoprolol Succinate (Er) 50 Mg Tab.Er.24h PO BID [facility] Morphine Sulfate 4 mg 04/14/24 21:15 Morphine Sulfate 4 Mg/Ml Syringe IV Q4HR PRN Severe Pain (Scale 7 to 10) Naloxone HCl 0.2 mg 04/14/24 21:15 Naloxone 0.4 Mg/Ml 1 Ml Vial IV Q2M PRN Opioid Reversal Ondansetron HCl 4 mg 04/14/24 21:15 Ondansetron 4 Mg/2 Ml Vial IVP Q8HR PRN Nausea And Vomiting Rivaroxaban 20 mg 04/15/24 21:00 Rivaroxaban 20 Mg Tab PO [facility] Protocol Tamsulosin HCl 0.4 mg 04/16/24 09:00 Tamsulosin 0.4 Mg Cap.Er.24h PO DAILY [facility] Intake and Output 04/14/24 04/15/24 04/15/24 22:59 06:59 14:59 Intake Total 47.417 Balance 47.417 Intake: Intake, IV Titration 47.417 Amount Diltiazem 125 mg In 47.417 Sodium Chloride 0.9% 100 ml @ 5 MG/HR 5 mls/hr IV .Q24H [facility] Rx#:[id number] Other: Weight 90.718 kg 04/15/24 05:22 04/15/24 05:22
[2024-04-15] MEDS: METOPROLOL SUCCINATE (ER) 50 MG TAB.ER.24H PO SCH ×2 (12:44→21:38)
[2024-04-15] MEDS: DILTIAZEM ORAL 60 MG TAB PO STA (12:46)
[2024-04-15] MEDS: FUROSEMIDE 10 MG/ML 4 ML VIAL IV STA (12:46)
[2024-04-15] MEDS ORDERED: DILTIAZEM ORAL 60 MG TAB PO SCH (13:00)
[2024-04-15] MEDS: DOCUSATE 100 MG CAP PO SCH (21:38)
[2024-04-15] MEDS: bisacodyL 5 MG TABLET.DR PO SCH (21:38)
[2024-04-15] MEDS: FAMOTIDINE 20 MG TAB PO SCH (21:38)
[2024-04-15] MEDS: RIVAROXABAN 20 MG TAB PO SCH (21:38)
[2024-04-15] MEDS: DILTIAZEM ORAL 30 MG TAB PO SCH (23:29)
[2024-04-16] MEDS: LEVOTHYROXINE 75 MCG TAB PO SCH (05:43)
[2024-04-16 05:53] LABS: Basophils % (A) 0 %; Eosinophils # (A) 0.3 k/uL (0-0.7); Eosinophils % (A) 2 %; HCT 44.7 % (39.0-53.0); HGB 14.3 gm/dL (13.0-17.5); Lymphocytes # (A) 2.1 k/uL (1.0-4.8); Lymphocytes % (A) 19 %; MCH 31.7 pg (25.0-35.0); MCV 99.1 fL (80.0-100.0); Mean Platelet Volume 6.9; Monocytes # (A) 0.9 k/uL (0-1.0); Monocytes % (A) 8 %; Neutrophils # (A) 7.7 k/uL (1.3-7.7); Neutrophils % (A) 69 %; Platelet Count 275 k/uL (150-450); RBC 4.51 m/uL (4.30-5.90); RDW 14.1 % (11.5-15.5); WBC 11.1 k/uL (3.8-10.6)
[2024-04-16 06:44] LABS: African American GFR (CKD) 74 (>60 ml/min/1.73 sqM); Anion Gap 6 mmol/L; Blood Urea Nitrogen 13 mg/dL (9-20); Calcium 9.4 mg/dL (8.4-10.2); Carbon Dioxide 32 mmol/L (22-30); Chloride 100 mmol/L (98-107); Glucose 106 mg/dL (74-99); Non-African American GFR(CKD) 64 (>60 ml/min/1.73 sqM); Potassium 3.7 mmol/L (3.5-5.1); Sodium 138 mmol/L (137-145)
[2024-04-16] MEDS: TAMSULOSIN 0.4 MG CAP.ER.24H PO SCH (08:16)
[2024-04-16] MEDS ORDERED: ASPIRIN 81 MG PO SCH (09:00)
[2024-04-16] MEDS: DILTIAZEM 125 MG in SODIUM CHLORIDE 0.9% 100 ML IV SCH ×2 (10:10→21:26)
[2024-04-16] MEDS: DILTIAZEM DRIP BOLUS FROM BAG 1 MG SOLN IV ONE (10:10)
--- NOTE | 2024-04-16 11:02 | P.PN ---
Subjective This is a pleasant 78 years old male with past medical history of A-fib, on Xarelto at home, hypothyroidism on levothyroxine 200 mcg for 4 to 5 years as he explains and hypertension. Presents because of tachycardia more than a week. No overt chest pain but he describes some chest pressure in the lower chest with no specification associated with some funny feeling in the jaw that comes and go for more than a week. Denies coughing or dyspnea. No headache dizziness weakness or numbness although he feels little lightheaded No specific GI or symptom No smoking or alcohol or illicit drugs On admission he was tachycardic with heart rate around 133, Labs were unremarkable CBC, BMP, LFT, INR. Troponin x 3 is negative TSH is very low at 0.015 and less and normal T4 at 1.1 D-dimer is -0.25 Chest x-ray showing loop recorder with no acute changes but there is right hemidiaphragm is elevated 7 cm per radiologist EKG showing a flutter with heart rate of 134 04/16 Patient with no chest pain or dyspnea Still tachycardia with heart rate 130 related to his A-fib/flutter on Cardizem drip at 5 mL/h Also on metoprolol 50 mg 3 times daily Dose of levothyroxine lowered to 150 mcg and patient informed Possible go for cardioversion tomorrow if no improvement Objective - Vital Signs Vital signs: Vital Signs Temp 98.3 F 04/16/24 08:15 Pulse 130 H 04/16/24 08:15 Resp 16 04/16/24 08:15 BP 121/83 04/16/24 08:15 Pulse Ox 97 04/16/24 08:15 FiO2 Intake & Output 04/15/24 04/16/24 04/16/24 18:59 06:59 18:59 Output Total 600 Balance -600 Weight 90.718 kg 86.6 kg Output: Urine 600 Other: Voiding Method Toilet Toilet Toilet # Voids 1 - Exam GENERAL: The patient is alert and oriented x3, not in any acute distress. Well developed, well nourished. HEENT: Pupils are round and equally reacting to light. EOMI. No scleral icterus. No conjunctival pallor. Normocephalic, atraumatic. No pharyngeal erythema. No thyromegaly. CARDIOVASCULAR: S1 and S2 present. No murmurs, rubs, or gallops. PULMONARY: Chest is clear to auscultation, no wheezing , no crackles. ABDOMEN: Soft, nontender, nondistended, normoactive bowel sounds. No palpable organomegaly. MUSCULOSKELETAL: No joint swelling or deformity. EXTREMITIES: No cyanosis, clubbing, or pedal edema. NEUROLOGICAL: Gross neurological examination did not reveal any focal deficits. SKIN: No rashes. no petechiae. - Labs CBC & Chem 7: 04/16/24 05:15 04/16/24 05:15 Labs: Abnormal Lab Results - Last 24 Hours (Table) 04/16/24 04/16/24 Range/Units 05:15 05:15 WBC 11.1 H (3.8-10.6) k/uL Carbon Dioxide 32 H (22-30) mmol/L Glucose 106 H (74-99) mg/dL Assessment and Plan Assessment: A flutter/fib with RVR, present on admission Iatrogenic hyperthyroidism. Patient is hypothyroidism on high dose of levothyroxine. We lowered the dose from 200 down to 150 mcg Hypertension Plan: Cardioversion per cardiology team Continue with Cardizem drip Continue with gentle hydration normal saline Continue with Xarelto and aspirin Hold losartan and Norvasc for blood pressure is borderline Lower dose of levothyroxine to 150 mcg daily, patient informed with recommendation to check thyroid function test in 2 to 3 months with his PCP and he agrees Labs and medication were reviewed.. Continue same treatment. Continue with symptomatic treatment. Resume home medication. Monitor labs and vitals. DVT and GI prophylaxis. Further recommendations as per clinical course of the patient DVT prophylaxis: Subcuta Xarelto GI Prophylaxis: Pepcid PT/OT: Pending Prognosis is guarded
--- NOTE | 2024-04-16 13:56 | P.PN ---
Subjective HISTORY OF PRESENT ILLNESS: 78-year-old male who is known to Dr. Juares. He underwent atrial fibrillation ablation in 2022. This time he presented to the hospital because of symptoms of palpitations, funny sensation in the jaw for more than a week. Previously it was more on and off but lately it has been more persistent which required him to come to the hospital. He denies any chest pressure symptoms. He does not appear volume overloaded. He was noticed to have significantly low TSH and he was taking levothyroxine 200 mcg. Admission Labs: Hb 12, BUN 17, creatinine 1.05 troponins were negative x 2, TSH was less than 0.015. Free T4 was 1.11. NT-proBNP 2300 Admission EKG: Atrial flutter with heart rate 134 bpm, nonspecific ST changes. 04/16/2024 Patient examined this morning at the bedside. Patient currently denies chest pain or pressure. He denies shortness of breath. Patient remains in atrial fibrillation/atrial tachycardia with heart rate in the [id number]. The patient states he was previously on flecainide and amiodarone however these were both discontinued in the past. Blood pressure stable with a reading of 123/81. PHYSICAL EXAM: VITAL SIGNS: Reviewed. GENERAL: Well-developed in no acute distress. NECK: Supple. No JVD or thyromegaly LUNGS: Respirations even and unlabored. Lungs essentially clear to auscultation bilaterally. HEART: Regular rate and rhythm. S1 and S2 heard. EXTREMITIES: Normal range of motion. No clubbing or cyanosis. Peripheral pulses intact. No lower extremity edema ASSESSMENT: Palpitations Persistent atrial fibrillation/flutter/tachycardia with RVR History of atrial fibrillation with previous ablation, 2022 PLAN: Continue metoprolol succinate. Increase frequency to 3 times a day Discontinue oral Cardizem Begin IV Cardizem bolus and drip per protocol Continue telemetry monitoring Continue anticoagulation with Xarelto N.p.o. at midnight Possible cardioversion tomorrow with Dr. Juares Nurse practitioner note has been reviewed by physician. Signing provider agrees with the documented findings, assessment, and plan of care documented by SENIOR SQL DATABASE DEVELOPER as a scribe. Objective - Vital Signs Vital signs: Vital Signs Temp 98.3 F 04/16/24 08:15 Pulse 132 H 04/16/24 12:15 Resp 16 04/16/24 12:15 BP 109/76 04/16/24 12:15 Pulse Ox 97 04/16/24 12:15 FiO2 Intake & Output 04/15/24 04/16/24 04/16/24 18:59 06:59 18:59 Intake Total 250.417 Output Total 600 Balance -600 250.417 Weight 90.718 kg 86.6 kg Intake: Intake, IV Titration 10.417 Amount Diltiazem 125 mg In 10.417 Sodium Chloride 0.9% 100 ml @ 5 MG/HR 5 mls/hr IV .Q24H [facility] Rx#:[id number] Oral 240 Output: Urine 600 Other: Voiding Method Toilet Toilet Toilet # Voids 1 - Labs CBC & Chem 7: 04/16/24 05:15 04/16/24 05:15 Labs: Abnormal Lab Results - Last 24 Hours (Table) 04/16/24 04/16/24 Range/Units 05:15 05:15 WBC 11.1 H (3.8-10.6) k/uL Carbon Dioxide 32 H (22-30) mmol/L Glucose 106 H (74-99) mg/dL
[2024-04-16] MEDS: METOPROLOL SUCCINATE (ER) 50 MG TAB.ER.24H PO SCH (16:42)
--- NOTE | 2024-04-17 09:08 | P.PN ---
Subjective This is a pleasant 78 years old male with past medical history of A-fib, on Xarelto at home, hypothyroidism on levothyroxine 200 mcg for 4 to 5 years as he explains and hypertension. Presents because of tachycardia more than a week. No overt chest pain but he describes some chest pressure in the lower chest with no specification associated with some funny feeling in the jaw that comes and go for more than a week. Denies coughing or dyspnea. No headache dizziness weakness or numbness although he feels little lightheaded No specific GI or symptom No smoking or alcohol or illicit drugs On admission he was tachycardic with heart rate around 133, Labs were unremarkable CBC, BMP, LFT, INR. Troponin x 3 is negative TSH is very low at 0.015 and less and normal T4 at 1.1 D-dimer is -0.25 Chest x-ray showing loop recorder with no acute changes but there is right hemidiaphragm is elevated 7 cm per radiologist EKG showing a flutter with heart rate of 134 04/16 Patient with no chest pain or dyspnea Still tachycardia with heart rate 130 related to his A-fib/flutter on Cardizem drip at 5 mL/h Also on metoprolol 50 mg 3 times daily Dose of levothyroxine lowered to 150 mcg and patient informed Possible go for cardioversion tomorrow if no improvement 04/17 Patient remains tachycardic with heart rate about 120s while on Cardizem drip 5 mg No chest pain, no dyspnea N.p.o. after midnight for possible cardiac procedure tomorrow or cardioversion Hold levothyroxine tomorrow and resume on Tuesday at the same dose of 150 mcg daily Patient remains on Xarelto Patient on metoprolol 50 mg 3 times daily Objective - Vital Signs Vital signs: Vital Signs Temp 98.1 F 04/17/24 08:00 Pulse 127 H 04/17/24 08:00 Resp 16 04/17/24 08:00 BP 115/87 04/17/24 08:00 Pulse Ox 95 04/17/24 08:00 FiO2 Intake & Output 04/16/24 04/17/24 04/17/24 18:59 06:59 18:59 Intake Total 493.251 Balance 493.251 Weight 90.7 kg Intake: Intake, IV Titration 31.251 Amount Diltiazem 125 mg In 31.251 Sodium Chloride 0.9% 100 ml @ 5 MG/HR 5 mls/hr IV .Q24H [facility] Rx#:[id number] Oral 462 Other: Voiding Method Toilet Toilet # Voids 2 2 # Bowel Movements 1 - Exam GENERAL: The patient is alert and oriented x3, not in any acute distress. Well developed, well nourished. HEENT: Pupils are round and equally reacting to light. EOMI. No scleral icterus. No conjunctival pallor. Normocephalic, atraumatic. No pharyngeal erythema. No thyromegaly. CARDIOVASCULAR: S1 and S2 present. No murmurs, rubs, or gallops. PULMONARY: Chest is clear to auscultation, no wheezing , no crackles. ABDOMEN: Soft, nontender, nondistended, normoactive bowel sounds. No palpable organomegaly. MUSCULOSKELETAL: No joint swelling or deformity. EXTREMITIES: No cyanosis, clubbing, or pedal edema. NEUROLOGICAL: Gross neurological examination did not reveal any focal deficits. SKIN: No rashes. no petechiae. - Labs CBC & Chem 7: 04/16/24 05:15 04/16/24 05:15 Assessment and Plan Assessment: A flutter/fib with RVR, present on admission Iatrogenic hyperthyroidism. Patient is hypothyroidism on high dose of levothyroxine. We lowered the dose from 200 down to 150 mcg Hypertension Plan: Cardioversion per cardiology team, possibly on 04/18 Continue with Cardizem drip Continue with Xarelto and aspirin Hold losartan and Norvasc for blood pressure is borderline Lower dose of levothyroxine to 150 mcg daily, patient informed with recommendation to check thyroid function test in 2 to 3 months with his PCP and he agrees Labs and medication were reviewed.. Continue same treatment. Continue with symptomatic treatment. Resume home medication. Monitor labs and vitals. DVT and GI prophylaxis. Further recommendations as per clinical course of the patient DVT prophylaxis: Subcuta Xarelto GI Prophylaxis: Pepcid PT/OT: Pending Prognosis is guarded
[2024-04-17 11:57] LABS: Basophils % (A) 0 %; Eosinophils # (A) 0.2 k/uL (0-0.7); Eosinophils % (A) 2 %; HCT 43.3 % (39.0-53.0); HGB 14.1 gm/dL (13.0-17.5); Lymphocytes # (A) 1.6 k/uL (1.0-4.8); Lymphocytes % (A) 14 %; MCH 32.9 pg (25.0-35.0); MCHC 32.7 g/dL (31.0-37.0); MCV 100.6 fL (80.0-100.0); Macrocytosis Slight; Mean Platelet Volume 6.9; Monocytes # (A) 0.9 k/uL (0-1.0); Monocytes % (A) 8 %; Neutrophils % (A) 73 %; Platelet Count 281 k/uL (150-450); RDW 14.3 % (11.5-15.5)
--- NOTE | 2024-04-17 12:39 | P.PN ---
Subjective HISTORY OF PRESENT ILLNESS: 78-year-old male who is known to Dr. Juares. He underwent atrial fibrillation ablation in 2022. This time he presented to the hospital because of symptoms of palpitations, funny sensation in the jaw for more than a week. Previously it was more on and off but lately it has been more persistent which required him to come to the hospital. He denies any chest pressure symptoms. He does not appear volume overloaded. He was noticed to have significantly low TSH and he was taking levothyroxine 200 mcg. Admission Labs: Hb 12, BUN 17, creatinine 1.05 troponins were negative x 2, TSH was less than 0.015. Free T4 was 1.11. NT-proBNP 2300 Admission EKG: Atrial flutter with heart rate 134 bpm, nonspecific ST changes. 04/16/2024 Patient examined this morning at the bedside. Patient currently denies chest pain or pressure. He denies shortness of breath. Patient remains in atrial fibrillation/atrial tachycardia with heart rate in the [id number]. The patient states he was previously on flecainide and amiodarone however these were both discontinued in the past. Blood pressure stable with a reading of 123/81. 04/17/2024 Patient examined this morning the bedside. Patient currently denies chest pain or pressure. She denies shortness of breath. He remains tachycardic this morning with a heart rate in the 130s. He remains on IV Cardizem. PHYSICAL EXAM: VITAL SIGNS: Reviewed. GENERAL: Well-developed in no acute distress. NECK: Supple. No JVD or thyromegaly LUNGS: Respirations even and unlabored. Lungs essentially clear to auscultation bilaterally. HEART: Tachycardic. Irregular rate and rhythm. S1 and S2 heard. EXTREMITIES: Normal range of motion. No clubbing or cyanosis. Peripheral pulses intact. No lower extremity edema ASSESSMENT: Palpitations Persistent atrial fibrillation/flutter/tachycardia with RVR History of atrial fibrillation with previous ablation, 2022 PLAN: Continue current dose of metoprolol succinate Continue IV Cardizem Continue telemetry monitoring Continue anticoagulation with Xarelto Patient scheduled for ablation with Dr. Juares on , 04/19/2023 Further recommendations pending patient course Nurse practitioner note has been reviewed by physician. Signing provider agrees with the documented findings, assessment, and plan of care documented by DIET CONSULTANT as a scribe. Objective - Vital Signs Vital signs: Vital Signs Temp 98.1 F 04/17/24 08:00 Pulse 52 L 04/17/24 11:25 Resp 16 04/17/24 11:25 BP 105/68 04/17/24 11:25 Pulse Ox 97 04/17/24 11:25 FiO2 Intake & Output 04/16/24 04/17/24 04/17/24 18:59 06:59 18:59 Intake Total 493.251 Balance 493.251 Weight 90.7 kg Intake: Intake, IV Titration 31.251 Amount Diltiazem 125 mg In 31.251 Sodium Chloride 0.9% 100 ml @ 5 MG/HR 5 mls/hr IV .Q24H [facility] Rx#:[id number] Oral 462 Other: Voiding Method Toilet Toilet Toilet # Voids 2 2 # Bowel Movements 1 - Labs CBC & Chem 7: 04/17/24 11:16 04/16/24 05:15 Labs: Abnormal Lab Results - Last 24 Hours (Table) 04/17/24 Range/Units 11:16 WBC 11.0 H (3.8-10.6) k/uL MCV 100.6 H (80.0-100.0) fL Neutrophils # 8.0 H (1.3-7.7) k/uL
--- NOTE | 2024-04-17 17:59 | P.PN ---
Progress Note - Text Patient presented with sustained atrial tachycardia consistent with typical atrial flutter with RVR difficult rate control and very symptomatic Plan Proceed with diagnostic EP study and radiofrequency ablation for atrial tachycardia/atrial flutter on , 19 April With anesthesia Please continue anticoagulation. Do not stop anticoagulation prior to the procedure. Please give anticoagulation even in the morning of the procedure N.p.o. on . No breakfast no lunch at the
[2024-04-17] MEDS ORDERED: SODIUM CHLORIDE 0.9% 1,000 ML IV SCH (18:00)
--- NOTE | 2024-04-18 13:00 | P.PN ---
Subjective HISTORY OF PRESENT ILLNESS: 78-year-old male who is known to Dr. Juares. He underwent atrial fibrillation ablation in 2022. This time he presented to the hospital because of symptoms of palpitations, funny sensation in the jaw for more than a week. Previously it was more on and off but lately it has been more persistent which required him to come to the hospital. He denies any chest pressure symptoms. He does not appear volume overloaded. He was noticed to have significantly low TSH and he was taking levothyroxine 200 mcg. Admission Labs: Hb 12, BUN 17, creatinine 1.05 troponins were negative x 2, TSH was less than 0.015. Free T4 was 1.11. NT-proBNP 2300 Admission EKG: Atrial flutter with heart rate 134 bpm, nonspecific ST changes. 04/16/2024 Patient examined this morning at the bedside. Patient currently denies chest pain or pressure. He denies shortness of breath. Patient remains in atrial fibrillation/atrial tachycardia with heart rate in the [id number]. The patient states he was previously on flecainide and amiodarone however these were both discontinued in the past. Blood pressure stable with a reading of 123/81. 04/17/2024 Patient examined this morning the bedside. Patient currently denies chest pain or pressure. She denies shortness of breath. He remains tachycardic this morning with a heart rate in the 130s. He remains on IV Cardizem. 04/18/2024 Patient examined this morning the bedside. Patient currently denies chest pain or pressure. She denies shortness of breath. He remains tachycardic with heart rate in the 120s. PHYSICAL EXAM: VITAL SIGNS: Reviewed. GENERAL: Well-developed in no acute distress. NECK: Supple. No JVD or thyromegaly LUNGS: Respirations even and unlabored. Lungs essentially clear to auscultation bilaterally. HEART: Tachycardic. Irregular rate and rhythm. S1 and S2 heard. EXTREMITIES: Normal range of motion. No clubbing or cyanosis. Peripheral pulses intact. No lower extremity edema ASSESSMENT: Palpitations Persistent atrial fibrillation/flutter/tachycardia with RVR History of atrial fibrillation with previous ablation, 2022 PLAN: Continue current dose of metoprolol succinate Per Dr. Juares, discontinue IV Cardizem Continue telemetry monitoring Continue anticoagulation with Xarelto. Do not hold. N.p.o. at midnight Patient scheduled for ablation with Dr. Juares on , 04/19/2023 Further recommendations pending patient course Nurse practitioner note has been reviewed by physician. Signing provider agrees with the documented findings, assessment, and plan of care documented by BOND MANAGER as a scribe. Objective - Vital Signs Vital signs: Vital Signs Temp 98.2 F 04/18/24 11:17 Pulse 125 H 04/18/24 11:17 Resp 15 04/18/24 11:17 BP 127/93 04/18/24 11:17 Pulse Ox 97 04/18/24 11:17 FiO2 Intake & Output 04/17/24 04/18/24 04/18/24 18:59 06:59 18:59 Intake Total 1196 355.083 250 Balance 1196 355.083 250 Weight 90.5 kg Intake: IV 10 Invasive Line 1 10 Intake, IV Titration 40 118.083 Amount Diltiazem 125 mg In 40 118.083 Sodium Chloride 0.9% 100 ml @ 5 MG/HR 5 mls/hr IV .Q24H [facility] Rx#:[id number] Oral 1156 237 240 Other: Voiding Method Toilet Toilet Toilet # Voids 1 1 - Labs CBC & Chem 7: 04/17/24 11:16 04/16/24 05:15
--- NOTE | 2024-04-19 14:31 | P.PN ---
Subjective Progress Note Date: 04/19/24 This is a pleasant 78 years old male with past medical history of A-fib, on Xarelto at home, hypothyroidism on levothyroxine 200 mcg for 4 to 5 years as he explains and hypertension. Presents because of tachycardia more than a week. No overt chest pain but he describes some chest pressure in the lower chest with no specification associated with some funny feeling in the jaw that comes and go for more than a week. Denies coughing or dyspnea. No headache dizziness weakness or numbness although he feels little lightheaded No specific GI or symptom No smoking or alcohol or illicit drugs On admission he was tachycardic with heart rate around 133, Labs were unremarkable CBC, BMP, LFT, INR. Troponin x 3 is negative TSH is very low at 0.015 and less and normal T4 at 1.1 D-dimer is -0.25 Chest x-ray showing loop recorder with no acute changes but there is right hemidiaphragm is elevated 7 cm per radiologist EKG showing a flutter with heart rate of 134 04/16 Patient with no chest pain or dyspnea Still tachycardia with heart rate 130 related to his A-fib/flutter on Cardizem drip at 5 mL/h Also on metoprolol 50 mg 3 times daily Dose of levothyroxine lowered to 150 mcg and patient informed Possible go for cardioversion tomorrow if no improvement 04/17 Patient remains tachycardic with heart rate about 120s while on Cardizem drip 5 mg No chest pain, no dyspnea N.p.o. after midnight for possible cardiac procedure tomorrow or cardioversion Hold levothyroxine tomorrow and resume on Tuesday at the same dose of 150 mcg daily Patient remains on Xarelto Patient on metoprolol 50 mg 3 times daily 04/19. Patient seen and examined. Currently n.p.o., going for ablation today. Denies any acute issues overnight REVIEW OF SYSTEMS: CONSTITUTIONAL: No fever, no malaise,. CARDIOVASCULAR: No chest pain, no palpitations, no syncope. PULMONARY: No shortness of breath, no cough, GASTROINTESTINAL: No diarrhea, no nausea, no vomiting, no abdominal pain. NEUROLOGICAL: No headaches, no weakness, PHYSICAL EXAMINATION: GENERAL: The patient is alert and oriented x3, not in any acute distress. Well developed, well nourished. HEENT: Pupils are round and equally reacting to light. EOMI. No scleral icterus. No conjunctival pallor. Normocephalic, atraumatic. No pharyngeal erythema. No thyromegaly. CARDIOVASCULAR: S1 and S2 present. No murmurs, rubs, or gallops. PULMONARY: Chest is clear to auscultation, no wheezing or crackles. ABDOMEN: Soft, nontender, nondistended, normoactive bowel sounds. No palpable organomegaly. MUSCULOSKELETAL: No joint swelling or deformity. EXTREMITIES: No cyanosis, clubbing, or pedal edema. NEUROLOGICAL: Gross neurological examination did not reveal any focal deficits. SKIN: No rashes. Assessment and plan A flutter/fib with RVR, present on admission Iatrogenic hyperthyroidism. Patient has hypothyroidism on high dose of levothyroxine. We lowered the dose from 200 down to 150 mcg Hypertension Monitor vital signs Monitor CBC Monitor CMP Continue telemetry monitoring Continue Synthroid Continue Toprol Continue Xarelto Currently n.p.o., scheduled for ablation by cardiology today Labs and medication were reviewed.. Continue same treatment. Continue with symptomatic treatment. Resume home medication. Monitor labs and vitals. DVT and GI prophylaxis. Further recommendations as per clinical course of the patient Dictation was produced using [employer] dictation software. please excuse any grammatical, word or spelling errors. Objective - Vital Signs Vital signs: Vital Signs Temp 98.3 F 04/19/24 08:00 Pulse 129 H 04/19/24 08:00 Resp 16 04/19/24 08:00 BP 128/79 04/19/24 08:00 Pulse Ox 96 04/19/24 08:00 FiO2 Intake & Output 04/18/24 04/19/24 04/19/24 18:59 06:59 18:59 Intake Total 1350 20 Balance 1350 20 Weight 90.2 kg Intake: IV 30 20 Invasive Line 1 30 20 Oral 1320 Other: Voiding Method Toilet Toilet # Voids 1 1 - Labs CBC & Chem 7: 04/17/24 11:16 04/16/24 05:15
[2024-04-19] MEDS ORDERED: PHENYLEPHRINE-0.9% NACL SYG 1,000 MCG/10 ML SYRINGE ONE (17:02)
[2024-04-19] MEDS ORDERED: PROTAMINE SULFATE 10 MG/ML 5 ML VIAL ONE (17:02)
[2024-04-19] MEDS ORDERED: HEPARIN SODIUM,PORCINE 5,000 UNIT/ML 1 ML VIAL ONE (17:02)
[2024-04-19] MEDS ORDERED: SUCCINYLCHOLINE CHLORIDE 200 MG/10 ML VIAL IV ONE (17:02)
[2024-04-19] MEDS ORDERED: MIDAZOLAM 2 MG/2 ML VIAL ONE (17:02)
[2024-04-19] MEDS ORDERED: NEOSTIGMINE 1 MG/ML 10 ML VIAL ONE (17:02)
[2024-04-19] MEDS ORDERED: PROPOFOL 10 MG/ML 20 ML VIAL IV ONE (17:02)
[2024-04-19] MEDS ORDERED: fentaNYL (PF) 50 MCG/ML 2 ML AMP ONE (17:02)
[2024-04-19] MEDS: LACTATED RINGERS 1,000 ML IV ONE (17:02)
[2024-04-19] MEDS ORDERED: ePHEDrine 50 MG/ML 1 ML VIAL ONE (17:02)
[2024-04-19] MEDS ORDERED: GLYCOPYRROLATE 0.2 MG/ML 2 ML VIAL ONE (17:02)
[2024-04-19] MEDS ORDERED: ROCURONIUM 10 MG/ML (5 ML VIAL) IV ONE (17:02)
[2024-04-19] MEDS: LIDOCAINE 1% INJ 10MG/ML (20 ML MDV) SQ ONE (17:25)
[2024-04-19] MEDS: HEPARIN SODIUM (1,000 UNIT/ML) 1,000 UNIT in SODIUM CHLORIDE 0.9% 1,000 ML IRRIGATION ONE (18:00)
[2024-04-19] MEDS: EMPTY BAG 1 BAG with HUMAN PROTHROMBN CMPL-BALFAXAR 2,080 UNIT IV STA (19:47)
[2024-04-19] MEDS ORDERED: ACETAMINOPHEN TAB 325 MG TAB PO PRN (20:09)
--- NOTE | 2024-04-19 20:18 | P.PN ---
Progress Note - Text Patient underwent successful mapping and ablation for typical atrial flutter Venous closure devices for the left groin sheaths Unable to deploy closure device for the right groin. Manual pressure, reversal of heparin and rivaroxaban and FemoStop Intracardiac echo revealed cardiomyopathy, global Plan No rivaroxaban tonight. Start rivaroxaban tomorrow morning with breakfast No metoprolol tonight, resume metoprolol succinate 50 mg p.o. daily at 9 AM tomorrow Resume losartan 50 mg p.o. daily at noon tomorrow No amlodipine since intracardiac echo revealed global cardiomyopathy. No amlodipine at discharge Remove Fraire catheter tomorrow Spironolactone 25 mg tonight Ambulate tomorrow Discharge planning for Tuesday, observe for 24 hours on telemetry Follow-up with Dr. Juares next week Home cardiac medications would include aspirin, rivaroxaban, metoprolol succinate 50 mg p.o. daily, losartan 50 mg p.o. daily and maximize as needed Discontinue amlodipine completely. Continue Pravachol transfer tech Add spironolactone 25 mg p.o. daily
[2024-04-19] MEDS: IV FLUID CONTINUATION 1,000 ML IV ONE (20:27)
--- NOTE | 2024-04-19 20:27 | P.EPPROC ---
- EP Procedure Note Electrophysiology Procedure Note: Diagnosis Atrial tachycardia with RVR unresponsive to medical treatment, symptomatic Past history of A-fib ablation with PVI, left atrial septal ablation and left atrial roof ablation, now presenting with an atrial tachycardia consistent with typical atrial flutter Final diagnosis Cavotricuspid isthmus dependent atrial flutter confirmed with entrainment mapping RF ablation terminated atrial flutter. Complete line of block made and bidirectional block confirmed Widely split potentials of greater than 140 ms along the line Details: Patient is brought to the EP lab in a fasting state. Written informed consent was obtained prior to the procedure the procedure was performed under general anesthesia. Venous sheaths were placed in the left femoral vein. Intracardiac echo and CS catheter placed Patient in a tachycardia with concentric activation tachycardia cycle length of about 240 ms. Entrainment from the coronary sinus os Deflectable venous sheath placed from the right femoral vein under fluoroscopic guidance with access at or just below femoral head Intracardiac echo revealed thickened pericardium exudative, global hypokinesis of the LV and absence of any intracardiac mass or thrombus No thrombus noted in the left atrial appendage, good images obtained Entrainment mapping from the cavotricuspid isthmus confirmed cavotricuspid dependency of atrial flutter Intracardiac echo used to perform 3D anatomic mapping. RF ablation applied and atrial flutter terminated Thereafter a complete line of block was made with RF lesions. Differential pacing confirmed bidirectional block. Widely split potentials noted of greater than 140 ms In the mid isthmus, multiple thick pedicles were noted. These were carefully ablated to ensure noncapture within the crypts and the pedicles AH interval 76 ms in sinus rhythm, HV interval 43 PA interval 178 ms QRS 103 ms Please note that fluoroscopic method was used to obtain access on account of central obesity IV dobutamine was started during the procedure given the severity of LV dysfunction and will be continued for 12 hours on telemetry IV heparin was given intraoperatively 5000 units Perclose was used to close the left femoral venous accesses. However it did not deploy well for the right access and therefore manual compression was used. Rivaroxaban and heparin effects were reversed and Stop Tirzepatide Good hemostasis is achieved at the end Plan Continue dobutamine for 12 hours and then resume heart failure medications tomorrow Resume rivaroxaban tomorrow morning 24 hours further of monitoring on telemetry and likely discharge day after tomorrow transfer tech
[2024-04-19] MEDS: PRAVASTATIN SODIUM 40 MG TAB PO SCH (21:15)
[2024-04-19] MEDS: SPIRONOLACTONE 25 MG TAB PO SCH (21:15)
[2024-04-19] MEDS: HYDROcodone/APAP 7.5-325MG 1 EACH TAB PO PRN (21:15)
[2024-04-19] MEDS: ACETAMINOPHEN IV (For NPO) 1,000 MG in EMPTY BAG 1 BAG IVPB ONE (21:15)
[2024-04-20] MEDS: LEVOTHYROXINE 75 MCG TAB PO SCH (05:17)
[2024-04-20 06:38] LABS: African American GFR (CKD) 70 (>60 ml/min/1.73 sqM); Anion Gap 7 mmol/L; Blood Urea Nitrogen 17 mg/dL (9-20); Calcium 8.7 mg/dL (8.4-10.2); Carbon Dioxide 28 mmol/L (22-30); Chloride 100 mmol/L (98-107); Glucose 93 mg/dL (74-99); Magnesium 1.9 mg/dL (1.6-2.3); Non-African American GFR(CKD) 60 (>60 ml/min/1.73 sqM); Potassium 4.1 mmol/L (3.5-5.1); Sodium 135 mmol/L (137-145)
[2024-04-20] MEDS: DOBUTamine DRIP 500 MG in DEXTROSE/WATER 1 250ML.BAG IV SCH (07:04)
--- NOTE | 2024-04-20 08:19 | P.PN ---
Progress Note - Text Patient will be seen by the primary cardiac team today From an electrophysiologic standpoint Yesterday he underwent diagnostic EP study which revealed typical cavotricuspid dependent atrial flutter He underwent successful ablation and termination of the arrhythmia followed by demonstration of bidirectional block all across the RF line While the Perclose stitch worked very well for the left-sided axis, it worked only partially for the right sided venous access. Therefore manual compression followed by FemoStop was applied The effect of rivaroxaban was reversed with 4 factor PCC Today his groin is doing well there is minimal swelling no tenderness and he is sitting comfortably in the chair The patient was informed of this and was asked to be careful for the next 1 week. Full instructions were given Intracardiac echo also revealed cardiomyopathy likely worsened by tachycardia Overnight I treated with low-dose dobutamine which has been discontinued this morning Toprol-XL was reduced to 50 mg p.o. daily Losartan was reinitiated 50 mg at noontime Spironolactone 25 mg p.o. daily was added Amlodipine is being discontinued completely on account of his cardiomyopathy and has been removed from his discharge medications Xarelto is being reinitiated today this morning Recommend In hospital stay for the next 24 hours to watch for any groin bleeding on the right side and to maximize heart failure medications Discharge planning for tomorrow and follow-up with Dr. Juares in about a week If after stopping amlodipine 10 mg p.o. daily his blood pressure increases then I may switch from Toprol-XL to carvedilol as an outpatient
[2024-04-20] MEDS: SPIRONOLACTONE 25 MG TAB PO SCH (09:11)
[2024-04-20] MEDS: RIVAROXABAN 20 MG TAB PO SCH (09:12)
[2024-04-20] MEDS: METOPROLOL SUCCINATE (ER) 50 MG TAB.ER.24H PO SCH (09:12)
[2024-04-20] MEDS: LOSARTAN 50 MG TAB PO SCH (12:04)
--- NOTE | 2024-04-20 12:07 | P.PN ---
Subjective HISTORY OF PRESENT ILLNESS: 78-year-old male who is known to Dr. Juares. He underwent atrial fibrillation ablation in 2022. This time he presented to the hospital because of symptoms of palpitations, funny sensation in the jaw for more than a week. Previously it was more on and off but lately it has been more persistent which required him to come to the hospital. He denies any chest pressure symptoms. He does not appear volume overloaded. He was noticed to have significantly low TSH and he was taking levothyroxine 200 mcg. Admission Labs: Hb 12, BUN 17, creatinine 1.05 troponins were negative x 2, TSH was less than 0.015. Free T4 was 1.11. NT-proBNP 2300 Admission EKG: Atrial flutter with heart rate 134 bpm, nonspecific ST changes. 04/16/2024 Patient examined this morning at the bedside. Patient currently denies chest pain or pressure. He denies shortness of breath. Patient remains in atrial fibrillation/atrial tachycardia with heart rate in the [id number]. The patient states he was previously on flecainide and amiodarone however these were both discontinued in the past. Blood pressure stable with a reading of 123/81. 04/17/2024 Patient examined this morning the bedside. Patient currently denies chest pain or pressure. She denies shortness of breath. He remains tachycardic this morning with a heart rate in the 130s. He remains on IV Cardizem. 04/18/2024 Patient examined this morning the bedside. Patient currently denies chest pain or pressure. She denies shortness of breath. He remains tachycardic with heart rate in the 120s. 04/20/2024 Patient examined this morning. Patient is status post ablation yesterday with Dr. Juares. Patient did have some bleeding of his right groin yesterday. Patient is currently sitting up in the chair. He denies any chest pain or pressure. Denies any shortness of breath. Vital signs are stable. PHYSICAL EXAM: VITAL SIGNS: Reviewed. GENERAL: Well-developed in no acute distress. NECK: Supple. No JVD or thyromegaly LUNGS: Respirations even and unlabored. Lungs essentially clear to auscultation bilaterally. HEART: Regular rate and rhythm. S1 and S2 heard. EXTREMITIES: Normal range of motion. No clubbing or cyanosis. Peripheral pulses intact. No lower extremity edema ASSESSMENT: Palpitations Persistent atrial fibrillation/flutter/tachycardia with RVR, status post ablation 04/19/2024 History of atrial fibrillation with previous ablation, 2022 PLAN: Continue current cardiac medications Continue to monitor patient for an additional 24 hours Anticipate discharge home tomorrow if patient remains stable Nurse practitioner note has been reviewed by physician. Signing provider agrees with the documented findings, assessment, and plan of care documented by PHYSICIAN'S ASSISTANT as a scribe. Objective - Vital Signs Vital signs: Vital Signs Temp 98.4 F 04/20/24 11:29 Pulse 60 04/20/24 11:29 Resp 17 04/20/24 11:29 BP 135/77 04/20/24 11:29 Pulse Ox 98 04/20/24 11:29 FiO2 Intake & Output 04/19/24 04/20/24 04/20/24 18:59 06:59 18:59 Intake Total 1450 83.2 118 Output Total 400 Balance 1450 -316.8 118 Weight 91.8 kg Intake: IV 1350 83.2 Oral 100 118 Output: Urine 400 Other: Voiding Method Toilet Toilet Toilet - Labs CBC & Chem 7: 04/17/24 11:16 04/20/24 05:21 Labs: Abnormal Lab Results - Last 24 Hours (Table) 04/20/24 Range/Units 05:21 Sodium 135 L (137-145) mmol/L
[2024-04-20 13:16] VITALS: BMI 29.0
--- NOTE | 2024-04-20 14:33 | P.PN ---
Subjective Progress Note Date: 04/20/24 This is a pleasant 78 years old male with past medical history of A-fib, on Xarelto at home, hypothyroidism on levothyroxine 200 mcg for 4 to 5 years as he explains and hypertension. Presents because of tachycardia more than a week. No overt chest pain but he describes some chest pressure in the lower chest with no specification associated with some funny feeling in the jaw that comes and go for more than a week. Denies coughing or dyspnea. No headache dizziness weakness or numbness although he feels little lightheaded No specific GI or symptom No smoking or alcohol or illicit drugs On admission he was tachycardic with heart rate around 133, Labs were unremarkable CBC, BMP, LFT, INR. Troponin x 3 is negative TSH is very low at 0.015 and less and normal T4 at 1.1 D-dimer is -0.25 Chest x-ray showing loop recorder with no acute changes but there is right hemidiaphragm is elevated 7 cm per radiologist EKG showing a flutter with heart rate of 134 04/16 Patient with no chest pain or dyspnea Still tachycardia with heart rate 130 related to his A-fib/flutter on Cardizem drip at 5 mL/h Also on metoprolol 50 mg 3 times daily Dose of levothyroxine lowered to 150 mcg and patient informed Possible go for cardioversion tomorrow if no improvement 04/17 Patient remains tachycardic with heart rate about 120s while on Cardizem drip 5 mg No chest pain, no dyspnea N.p.o. after midnight for possible cardiac procedure tomorrow or cardioversion Hold levothyroxine tomorrow and resume on Tuesday at the same dose of 150 mcg daily Patient remains on Xarelto Patient on metoprolol 50 mg 3 times daily 04/19. Patient seen and examined. Currently n.p.o., going for ablation today. Denies any acute issues overnight. 04/20. Patient seen and examined. Patient underwent diagnostic EP study which revealed typical cavotricuspid dependent atrial flutter, successful ablation and termination of the arrhythmia followed by demonstration of bidirectional block all across the RF line EP recommended Toprol-XL reduced to 50 mg p.o. daily,Losartan was reinitiated 50 mg ,Spironolactone 25 mg p.o. daily was added,Amlodipine is being discontinued completely on account of his cardiomyopathy. REVIEW OF SYSTEMS: CONSTITUTIONAL: No fever, no malaise,. CARDIOVASCULAR: No chest pain, no palpitations, no syncope. PULMONARY: No shortness of breath, no cough, GASTROINTESTINAL: No diarrhea, no nausea, no vomiting, no abdominal pain. NEUROLOGICAL: No headaches, no weakness, PHYSICAL EXAMINATION: GENERAL: The patient is alert and oriented x3, not in any acute distress. Well developed, well nourished. HEENT: Pupils are round and equally reacting to light. EOMI. No scleral icterus. No conjunctival pallor. Normocephalic, atraumatic. No pharyngeal erythema. No thyromegaly. CARDIOVASCULAR: S1 and S2 present. No murmurs, rubs, or gallops. PULMONARY: Chest is clear to auscultation, no wheezing or crackles. ABDOMEN: Soft, nontender, nondistended, normoactive bowel sounds. No palpable organomegaly. MUSCULOSKELETAL: No joint swelling or deformity. EXTREMITIES: No cyanosis, clubbing, or pedal edema. NEUROLOGICAL: Gross neurological examination did not reveal any focal deficits. SKIN: No rashes. Assessment and plan A flutter/fib with RVR, present on admission Iatrogenic hyperthyroidism. Patient has hypothyroidism on high dose of levothyroxine. We lowered the dose from 200 down to 150 mcg Hypertension Monitor vital signs Monitor CBC Monitor CMP Continue telemetry monitoring Status post diagnostic EP study which revealed typical cavotricuspid dependent atrial flutter, successful ablation and termination of the arrhythmia followed by demonstration of bidirectional block all across the RF line Continue Synthroid Continue Xarelto EP recommended Toprol-XL reduced to 50 mg p.o. daily,Losartan was reinitiated 50 mg ,Spironolactone 25 mg p.o. daily was added,Amlodipine is being discontinued completely on account of his cardiomyopathy. Cardiology following Labs and medication were reviewed.. Continue same treatment. Continue with symptomatic treatment. Resume home medication. Monitor labs and vitals. DVT and GI prophylaxis. Further recommendations as per clinical course of the patient Dictation was produced using [employer] dictation software. please excuse any grammatical, word or spelling errors. Objective - Vital Signs Vital signs: Vital Signs Temp 97.8 F 04/20/24 08:00 Pulse 68 04/20/24 08:00 Resp 16 04/20/24 08:00 BP 133/79 04/20/24 08:00 Pulse Ox 97 04/20/24 08:00 FiO2 Intake & Output 04/19/24 04/20/24 04/20/24 18:59 06:59 18:59 Intake Total 1450 83.2 118 Output Total 400 Balance 1450 -316.8 118 Weight 91.8 kg Intake: IV 1350 83.2 Oral 100 118 Output: Urine 400 Other: Voiding Method Toilet Toilet Toilet - Labs CBC & Chem 7: 04/17/24 11:16 04/20/24 05:21 Labs: Abnormal Lab Results - Last 24 Hours (Table) 04/20/24 Range/Units 05:21 Sodium 135 L (137-145) mmol/L
[2024-04-21 10:23] VITALS: RESP 18
[2024-04-21 10:25] LABS: Basophils % (A) 0 %; Eosinophils # (A) 0.2 k/uL (0-0.7); Eosinophils % (A) 2 %; HCT 38.5 % (39.0-53.0); HGB 12.4 gm/dL (13.0-17.5); Lymphocytes # (A) 1.2 k/uL (1.0-4.8); Lymphocytes % (A) 12 %; MCH 32.3 pg (25.0-35.0); MCHC 32.2 g/dL (31.0-37.0); MCV 100.4 fL (80.0-100.0); Macrocytosis Slight; Monocytes # (A) 0.8 k/uL (0-1.0); Monocytes % (A) 8 %; Neutrophils # (A) 7.1 k/uL (1.3-7.7); Neutrophils % (A) 75 %; Platelet Count 274 k/uL (150-450); RBC 3.84 m/uL (4.30-5.90); RDW 14.4 % (11.5-15.5); WBC 9.4 k/uL (3.8-10.6)
--- NOTE | 2024-04-21 11:00 | P.PN ---
Subjective HISTORY OF PRESENT ILLNESS: 78-year-old male who is known to Dr. Juares. He underwent atrial fibrillation ablation in 2022. This time he presented to the hospital because of symptoms of palpitations, funny sensation in the jaw for more than a week. Previously it was more on and off but lately it has been more persistent which required him to come to the hospital. He denies any chest pressure symptoms. He does not appear volume overloaded. He was noticed to have significantly low TSH and he was taking levothyroxine 200 mcg. Admission Labs: Hb 12, BUN 17, creatinine 1.05 troponins were negative x 2, TSH was less than 0.015. Free T4 was 1.11. NT-proBNP 2300 Admission EKG: Atrial flutter with heart rate 134 bpm, nonspecific ST changes. 04/16/2024 Patient examined this morning at the bedside. Patient currently denies chest pain or pressure. He denies shortness of breath. Patient remains in atrial fibrillation/atrial tachycardia with heart rate in the [id number]. The patient states he was previously on flecainide and amiodarone however these were both discontinued in the past. Blood pressure stable with a reading of 123/81. 04/17/2024 Patient examined this morning the bedside. Patient currently denies chest pain or pressure. She denies shortness of breath. He remains tachycardic this morning with a heart rate in the 130s. He remains on IV Cardizem. 04/18/2024 Patient examined this morning the bedside. Patient currently denies chest pain or pressure. She denies shortness of breath. He remains tachycardic with heart rate in the 120s. 04/20/2024 Patient examined this morning. Patient is status post ablation yesterday with Dr. Juares. Patient did have some bleeding of his right groin yesterday. Patient is currently sitting up in the chair. He denies any chest pain or pressure. Denies any shortness of breath. Vital signs are stable. 04/21/2024 Patient examined this morning. He is sitting up in the chair. Patient denies any chest pain or pressure. Denies any shortness of breath. Vital signs are stable. Hemoglobin today is 12.4. Previous hemoglobin was 14.1 however that was 4 days ago. No signs of active bleeding noted. PHYSICAL EXAM: VITAL SIGNS: Reviewed. GENERAL: Well-developed in no acute distress. NECK: Supple. No JVD or thyromegaly LUNGS: Respirations even and unlabored. Lungs essentially clear to auscultation bilaterally. HEART: Regular rate and rhythm. S1 and S2 heard. EXTREMITIES: Normal range of motion. No clubbing or cyanosis. Peripheral pulses intact. No lower extremity edema ASSESSMENT: Palpitations Persistent atrial fibrillation/flutter/tachycardia with RVR, status post ablation 04/19/2024 History of atrial fibrillation with previous ablation, 2022 PLAN: Continue current cardiac medications Patient is stable for discharge home today from a cardiac standpoint Patient to follow-up postdischarge with Dr. Juares Nurse practitioner note has been reviewed by physician. Signing provider agrees with the documented findings, assessment, and plan of care documented by NEUROLOGY PHYSICIAN ASSISTANT as a scribe. Objective - Vital Signs Vital signs: Vital Signs Temp 98.3 F 04/21/24 08:00 Pulse 72 04/21/24 08:00 Resp 18 04/21/24 08:00 BP 122/70 04/21/24 08:00 Pulse Ox 94 L 04/21/24 03:17 FiO2 Intake & Output 04/20/24 04/21/24 04/21/24 18:59 06:59 18:59 Intake Total 836 180 Balance 836 180 Weight 91.8 kg 91.8 kg Intake: Oral 836 180 Other: Voiding Method Toilet Toilet Toilet # Voids 1 1 - Labs CBC & Chem 7: 04/21/24 10:01 04/20/24 05:21 Labs: Abnormal Lab Results - Last 24 Hours (Table) 04/21/24 Range/Units 10:01 RBC 3.84 L (4.30-5.90) m/uL Hgb 12.4 L (13.0-17.5) gm/dL Hct 38.5 L (39.0-53.0) % MCV 100.4 H (80.0-100.0) fL
--- NOTE | 2024-04-21 12:58 | P.DS ---
Providers Date of admission: 04/14/24 21:15 Expected date of discharge: 04/21/24 Attending physician: Jo Garcia Consults: 04/14/24 21:15 Consult Physician Routine Consulting Provider: Arnold Medina Consult Reason/Comments: [email or web address] Do you want consulting provider notified?: Yes Primary care physician: Red Dean Hospital Course: Discharge diagnoses; A flutter/fib with RVR, present on admission Iatrogenic hyperthyroidism. Patient has hypothyroidism on high dose of levothyroxine. We lowered the dose from 200 down to 150 mcg Hypertension Hospital course; This is a pleasant 78 years old male with past medical history of A-fib, on Xarelto at home, hypothyroidism on levothyroxine 200 mcg for 4 to 5 years as he explains and hypertension. Presents because of tachycardia more than a week. No overt chest pain but he describes some chest pressure in the lower chest with no specification associated with some funny feeling in the jaw that comes and go for more than a week. Denies coughing or dyspnea. No headache dizziness weakness or numbness although he feels little lightheaded No specific GI or symptom No smoking or alcohol or illicit drugs On admission he was tachycardic with heart rate around 133, Labs were unremarkable CBC, BMP, LFT, INR. Troponin x 3 is negative TSH is very low at 0.015 and less and normal T4 at 1.1 D-dimer is -0.25 Chest x-ray showing loop recorder with no acute changes but there is right hemidiaphragm is elevated 7 cm per radiologist EKG showing a flutter with heart rate of 134 04/16 Patient with no chest pain or dyspnea Still tachycardia with heart rate 130 related to his A-fib/flutter on Cardizem drip at 5 mL/h Also on metoprolol 50 mg 3 times daily Dose of levothyroxine lowered to 150 mcg and patient informed Possible go for cardioversion tomorrow if no improvement 04/17 Patient remains tachycardic with heart rate about 120s while on Cardizem drip 5 mg No chest pain, no dyspnea N.p.o. after midnight for possible cardiac procedure tomorrow or cardioversion Hold levothyroxine tomorrow and resume on Tuesday at the same dose of 150 mcg daily Patient remains on Xarelto Patient on metoprolol 50 mg 3 times daily 04/19. Patient seen and examined. Currently n.p.o., going for ablation today. Denies any acute issues overnight. 04/20. Patient seen and examined. Patient underwent diagnostic EP study which revealed typical cavotricuspid dependent atrial flutter, successful ablation and termination of the arrhythmia followed by demonstration of bidirectional block all across the RF line EP recommended Toprol-XL reduced to 50 mg p.o. daily,Losartan was reinitiated 50 mg ,Spironolactone 25 mg p.o. daily was added,Amlodipine is being discontinued completely on account of his cardiomyopathy. 04/21. Patient seen and examined. No acute issues overnight. Cardiology cleared the patient for discharge. PHYSICAL EXAMINATION: GENERAL: The patient is alert and oriented x3, not in any acute distress. Well developed, well nourished. HEENT: Pupils are round and equally reacting to light. EOMI. No scleral icterus. No conjunctival pallor. Normocephalic, atraumatic. No pharyngeal erythema. No thyromegaly. CARDIOVASCULAR: S1 and S2 present. No murmurs, rubs, or gallops. PULMONARY: Chest is clear to auscultation, no wheezing or crackles. ABDOMEN: Soft, nontender, nondistended, normoactive bowel sounds. No palpable organomegaly. MUSCULOSKELETAL: No joint swelling or deformity. EXTREMITIES: No cyanosis, clubbing, or pedal edema. NEUROLOGICAL: Gross neurological examination did not reveal any focal deficits. SKIN: No rashes. Dictation was produced using [employer] dictation software. please excuse any grammatical, word or spelling errors. Patient Condition at Discharge: Fair Plan - Discharge Summary Discharge Rx Participant: No New Discharge Prescriptions: New Spironolactone [Aldactone] 25 mg PO DAILY 30 Days #30 tab Levothyroxine Sodium [Synthroid] 150 mcg PO DAILY@0630 30 Days #30 tab Continue bisacodyL [Dulcolax] 10 mg PO HS Nitroglycerin 0.4 mg SL Q5M PRN PRN Reason: Chest Pain Losartan [Cozaar] 50 mg PO DAILY Famotidine [Pepcid] 20 mg PO BID Biotin [Biotin Disolve] 10,000 mcg PO HS Pravastatin Sodium [Pravachol] 40 mg PO HS Rivaroxaban [Xarelto] 20 mg PO HS Testosterone Cypionate [Depo-Testosterone] 200 mg IM Q30D Tamsulosin [Flomax] 0.4 mg PO DAILY Multivitamins, Thera [Multivitamin (formulary)] 1 tab PO DAILY HYDROcodone/APAP 7.5-325MG [[place] 7.5-325] 1 tab PO Q6H PRN PRN Reason: Pain Aspirin [Adult Low Dose Aspirin EC] 81 mg PO DAILY Docusate [Colace] 400 mg PO HS Metoprolol Succinate (ER) [Toprol XL] 50 mg PO DAILY Albuterol Sulfate [Albuterol Sulfate Hfa] 1 puff PO RT-Q6H PRN PRN Reason: Shortness Of Breath Discontinued amLODIPine 10 mg PO DAILY Levothyroxine Sodium 200 mcg PO DAILY Discharge Medication List Aspirin [Adult Low Dose Aspirin EC] 81 mg PO DAILY 11/19/22 [History] Famotidine [Pepcid] 20 mg PO BID 11/19/22 [History] HYDROcodone/APAP 7.5-325MG [[place] 7.5-325] 1 tab PO Q6H PRN 11/19/22 [History] Losartan [Cozaar] 50 mg PO DAILY 11/19/22 [History] Multivitamins, Thera [Multivitamin (formulary)] 1 tab PO DAILY 11/19/22 [History] Nitroglycerin 0.4 mg SL Q5M PRN 11/19/22 [History] Rivaroxaban [Xarelto] 20 mg PO HS 11/19/22 [History] Tamsulosin [Flomax] 0.4 mg PO DAILY 11/19/22 [History] Testosterone Cypionate [Depo-Testosterone] 200 mg IM Q30D 11/19/22 [History] bisacodyL [Dulcolax] 10 mg PO HS 11/19/22 [History] Albuterol Sulfate [Albuterol Sulfate Hfa] 1 puff PO RT-Q6H PRN 04/15/24 [ History] Biotin [Biotin Disolve] 10,000 mcg PO HS 04/15/24 [History] Docusate [Colace] 400 mg PO HS 04/15/24 [History] Metoprolol Succinate (ER) [Toprol XL] 50 mg PO DAILY 04/15/24 [History] Pravastatin Sodium [Pravachol] 40 mg PO HS 01/19/25 [History] Levothyroxine Sodium [Synthroid] 150 mcg PO DAILY@0630 30 Days #30 tab 04/21/24 [Rx] Spironolactone [Aldactone] 25 mg PO DAILY 30 Days #30 tab 04/21/24 [Rx] Follow up Appointment(s)/Referral(s): Nicolás Juares MD [STAFF PHYSICIAN] - 04/30/24 11:30 am (appointment is with Mikayla MONROE) Red Dean [Primary Care Provider] - 1-2 days Patient Instructions/Handouts: Heart Palpitations (ED) Activity/Diet/Wound Care/Special Instructions: Post EP study - Ablation instructions 1. Keep access sites dry for 2 days. 2. No heavy lifting or straining for 2 days. 3. Avoid bending the hips repeatedly for 2 days. 4. You may go up and down stairs slowly 5. If you have had an ablation for atrial fibrillation or atrial flutter and are on a blood thinner, do not stop the blood thinner even temporarily for 3 months post ablation Call if the following is noted 1. Bleeding, increasing swelling or pain at the access sites. 2. Increasing chest discomfort, especially upon taking a deep breath. 3. Increasing shortness of breath, at rest or with exertion. 4. Undue cough / phlegm 5. Difficulty or pain while swallowing. 6. Pain or change in color in the extremities. 7. Fever, chills, rigors. 8. Increasing headache or neurologic symptoms. 9. Dizziness, fainting, palpitations For patients who have undergone an A-fib ablation /atrial flutter ablation Strict instruction; do NOT stop anticoagulation (Eliquis/Xarelto/Pradaxa) for the next 2 months temporarily, for any elective, nonurgent surgery. This increases the risk of stroke, post A-fib ablation Cardiac home medications Continue Pravachol 40 mg p.o. daily Continue Toprol-XL 50 mg p.o. daily in the morning Continue losartan at noontime Stop amlodipine completely Spironolactone 25 mg p.o. daily Rivaroxaban, resume Aspirin, continue Discharge Disposition: HOME SELF-CARE
[2024-04-21 13:01] VITALS: BP 133/80; PULSE 60; TEMP 98.4
--- NOTE | 2024-04-27 05:18 | P.PN ---
Subjective This is a pleasant 78 years old male with past medical history of A-fib, on Xarelto at home, hypothyroidism on levothyroxine 200 mcg for 4 to 5 years as he explains and hypertension. Presents because of tachycardia more than a week. No overt chest pain but he describes some chest pressure in the lower chest with no specification associated with some funny feeling in the jaw that comes and go for more than a week. Denies coughing or dyspnea. No headache dizziness weakness or numbness although he feels little lightheaded No specific GI or symptom No smoking or alcohol or illicit drugs On admission he was tachycardic with heart rate around 133, Labs were unremarkable CBC, BMP, LFT, INR. Troponin x 3 is negative TSH is very low at 0.015 and less and normal T4 at 1.1 D-dimer is -0.25 Chest x-ray showing loop recorder with no acute changes but there is right hemidiaphragm is elevated 7 cm per radiologist EKG showing a flutter with heart rate of 134 04/16 Patient with no chest pain or dyspnea Still tachycardia with heart rate 130 related to his A-fib/flutter on Cardizem drip at 5 mL/h Also on metoprolol 50 mg 3 times daily Dose of levothyroxine lowered to 150 mcg and patient informed Possible go for cardioversion tomorrow if no improvement 04/17 Patient remains tachycardic with heart rate about 120s while on Cardizem drip 5 mg No chest pain, no dyspnea N.p.o. after midnight for possible cardiac procedure tomorrow or cardioversion Hold levothyroxine tomorrow and resume on Tuesday at the same dose of 150 mcg daily Patient remains on Xarelto Patient on metoprolol 50 mg 3 times daily 04/18 no chest pain , no dyspnea still tachycardic as above cardiology team are following closely and plan for ablation procedure Objective - Vital Signs Vital signs: Vital Signs Temp 98.2 F 04/18/24 19:32 Pulse 131 H 04/18/24 19:32 Resp 16 04/18/24 19:32 BP 113/83 04/18/24 19:32 Pulse Ox 96 04/18/24 19:32 FiO2 Intake & Output 04/18/24 04/18/24 04/19/24 06:59 18:59 06:59 Intake Total 112.016 9362 10 Balance 757.021 6853 10 Weight 90.5 kg Intake: IV 30 10 Invasive Line 1 30 10 Intake, IV Titration 118.083 Amount Diltiazem 125 mg In 118.083 Sodium Chloride 0.9% 100 ml @ 5 MG/HR 5 mls/hr IV .Q24H [facility] Rx#:[id number] Oral 237 1320 Other: Voiding Method Toilet Toilet # Voids 1 1 - Exam GENERAL: The patient is alert and oriented x3, not in any acute distress. Well developed, well nourished. HEENT: Pupils are round and equally reacting to light. EOMI. No scleral icterus. No conjunctival pallor. Normocephalic, atraumatic. No pharyngeal erythema. No thyromegaly. CARDIOVASCULAR: S1 and S2 present. No murmurs, rubs, or gallops. PULMONARY: Chest is clear to auscultation, no wheezing , no crackles. ABDOMEN: Soft, nontender, nondistended, normoactive bowel sounds. No palpable organomegaly. MUSCULOSKELETAL: No joint swelling or deformity. EXTREMITIES: No cyanosis, clubbing, or pedal edema. NEUROLOGICAL: Gross neurological examination did not reveal any focal deficits. SKIN: No rashes. no petechiae. - Labs CBC & Chem 7: 04/21/24 10:01 04/20/24 05:21 Assessment and Plan Assessment: A flutter/fib with RVR, present on admission Iatrogenic hyperthyroidism. Patient is hypothyroidism on high dose of levothyroxine. We lowered the dose from 200 down to 150 mcg Hypertension Plan: Cardioversion per cardiology team, possibly on 04/18 Continue with Cardizem drip Continue with Xarelto and aspirin Hold losartan and Norvasc for blood pressure is borderline Lower dose of levothyroxine to 150 mcg daily, patient informed with recommendation to check thyroid function test in 2 to 3 months with his PCP and he agrees Labs and medication were reviewed.. Continue same treatment. Continue with symptomatic treatment. Resume home medication. Monitor labs and vitals. DVT and GI prophylaxis. Further recommendations as per clinical course of the patient DVT prophylaxis: Subcuta Xarelto GI Prophylaxis: Pepcid PT/OT: Pending Prognosis is guarded
== END 2024-04-21 14:10 | disposition home or self-care (01) | DRG 274 ==
LOC: EC 18:50 → 3SCARD 21:15
PROVIDERS: ADMIT Hospitalist; ATTEND Hospitalist
PROC: 3E033RZ Introduction of Antiarrhythmic into Peripheral Vein, Percutaneous Approach (ICD-10-PCS; 2024-04-14)
PROC: 02583ZZ Destruction of Conduction Mechanism, Percutaneous Approach (ICD-10-PCS; principal; 2024-04-19 16:50)
PROC: B24BZZZ Ultrasonography of Heart with Aorta (ICD-10-PCS; principal; 2024-04-19 16:50)
DX: I48.3 Typical atrial flutter (principal); I42.9 Cardiomyopathy, unspecified; E05.80 Other thyrotoxicosis without thyrotoxic crisis or storm; J44.9 Chronic obstructive pulmonary disease, unspecified; I10 Essential (primary) hypertension; E03.9 Hypothyroidism, unspecified; I48.19 Other persistent atrial fibrillation; Z96.611 Presence of right artificial shoulder joint; Z96.651 Presence of right artificial knee joint; Z96.662 Presence of left artificial ankle joint; I47.19 Other supraventricular tachycardia; Z79.01 Long term (current) use of anticoagulants; Z79.890 Hormone replacement therapy; Z87.891 Personal history of nicotine dependence; Z86.73 Personal history of transient ischemic attack (TIA), and cerebral infarction without residual deficits; Z79.899 Other long term (current) drug therapy; Z79.82 Long term (current) use of aspirin; Z82.49 Family history of ischemic heart disease and other diseases of the circulatory system
CPT/HCPCS: 36415; 71046; 80048; 80053; 83605; 83690; 83735; 83880; 84100; 84439; 84443; 84484; 85025; 85379; 85610; 85730; 93005; 93653; 93662; 96361; 96365; 96366; 96368; 96375; 99291